=== PATIENT | female | born 1960 | race Caucasian/White ===

== ENCOUNTER 2024-04-07 10:57 | Outpatient (REF) | payer MEDICARE, OTHER, SELFPAY ==
[2024-04-07 13:13] LABS: Alanine Aminotransferase 17 U/L (0-31); Albumin Level 4.5 g/dL (3.5-5.0); Alkaline Phosphatase 80 U/L (39-117); Aspartate Amino Transferase 24 U/L (5-31); Bilirubin Direct 0.3 mg/dL (0.0-0.5); Bilirubin Total 0.8 mg/dL (0.0-1.0); Lipase 32 U/L (8-78); Total Protein 7.5 g/dL (6.5-8.0)
[2024-04-07 13:29] LABS: TSH reflex Free T4 1.37 uIU/mL (0.32-4.0)
[2024-04-07 13:36] LABS: Folate 13.1 ng/mL (> or = 4.0); Vitamin B12 469 pg/mL (200-900)
[2024-04-11 13:19] LABS: Vitamin D 25-OH, D2 9 ng/mL; Vitamin D 25-OH, D3 23 ng/mL; Vitamin D 25-OH, Total 32 ng/mL (30-100)
== END 2024-04-07 10:58 | disposition home or self-care (01) ==
LOC: HO.LAB 10:57
PROVIDERS: PCP Internal Medicine; Visit Provider Nurse Practitioner Family
DX: R10.31 Right lower quadrant pain (principal); R14.0 Abdominal distension (gaseous); K59.01 Slow transit constipation; E55.9 Vitamin D deficiency, unspecified; R74.01 Elevation of levels of liver transaminase levels; R19.7 Diarrhea, unspecified
CPT/HCPCS: 36415; 80076; 82306; 82607; 82746; 83690; 84443; 99202

== ENCOUNTER 2024-04-07 10:57 | Outpatient (AMB) | payer MEDICARE, OTHER, SELFPAY ==
--- NOTE | 2024-04-07 11:01 | A.OFFVIS_ITS ---
Vital Signs 04/07/24 11:15 Height 5 ft 8 in Weight 164 lb 0.383 oz BMI 24.9 BP 140/78 H Blood Pressure Location Rt brachial Position Sitting Pulse 60 Pulse Source Pulse Oximeter Pulse Oximetry (%) 96 Oxygen Delivery Method Room Air Intake Visit Reasons: EGD needed Intake Note: Shruthi presents in office today for a egd consult. CC; Pt reports that she is here today for egd consult with referral from her PCP based on LRQ pain. Pt reports that she has had this intermittent pain, consistently in the LRQ, for the past 6 mos. Pt reports that her sx present as an intense ache in that quadrant. Pt reports having intermittent constipation which seems to coincide with the pain in the LRQ. Pt denies any melena or other abnormalities of their bowel movements. Talent Acquisition Manager Required: No Allergies oxycodone Allergy (Intermediate, Verified 04/06/24 09:21) Unknown red dye Allergy (Intermediate, Verified 04/06/24 09:21) Unknown Sulfa (Sulfonamide Antibiotics) Allergy (Intermediate, Verified 04/06/24 09:21) Unknown lactase Allergy (Verified 04/06/24 09:21) Unknown HPI HPI EGD needed: Details: 63-year-old female with past medical history of hypothyroidism, osteoporosis, JOSE, hyperlipidemia, carotid stenosis, asthma is here today for initial consultation. Patient was sent to us by her PCP. Reports to have right lower quadrant pain that has been going on for over [address] scan done that did not show any acute processes. Also ultrasound was done and it was normal. Last colonoscopy was done over 5 years ago and we will ask for results. Patient reports that she has been eating fairly healthy. Patient eats mostly home cooked meals. Patient is avoiding fast food restaurants. Patient denies any melena, hematochezia, unintentional weight loss or ribbon like stools. Patient admits to have occasional constipation and reports that her pain in right lumbar region is worse when she is constipated. Patient also reports bloating postprandially as well as cramping. Patient reports that the pain does not radiate to any other area. Patient denies any dyspepsia, dysphagia or odynophagia. [facility] Medical History SVT (supraventricular tachycardia) HTN (hypertension) Osteoporosis JOSE (obstructive sleep apnea) Hypothyroidism (acquired) Hyperlipidemia GERD (gastroesophageal reflux disease) Carotid stenosis Asthma Surgical History H/O dilation and curettage Hx of section History of knee replacement Hx of thumb surgery Family History Mother Osteoporosis Father Dementia Parkinson disease Social History Household Members: Family Alcohol intake: never Patient Tobacco Use Status: Never used Tobacco Review of Systems Const Denies weight gain and Denies weight loss ENT Reports no additional complaints, Denies dysphagia and Denies odynophagia Card Reports no additional complaints Resp Reports no additional complaints GI Reports abdominal pain (RLQ), Denies belching, Denies melena, Reports bloating, Reports constipation, Denies dysphagia, Denies excessive flatus, Denies dyspepsia, Denies heartburn, Denies diarrhea, Denies loose stools, Denies nausea , Denies odynophagia and Denies vomiting Reports no additional complaints Musc Reports no additional complaints Neuro Reports no additional complaints Psych Reports no additional complaints Endo Reports no additional complaints Physical Exam Vital Signs: Last Vital Signs Pulse 60 04/07/24 11:15 BP 140/78 H 04/07/24 11:15 Pulse Ox 96 04/07/24 11:15 Oxygen Delivery Method Room Air 04/07/24 11:15 BMI result Body Mass Index 24.9 Const General: healthy appearing, no acute distress and well developed Nutritional Appearance: well nourished Orientation/consciousness: patient oriented x3 Resp Effort & Inspection: normal respiratory effort, able to speak in complete sentences, no tracheal deviation and symmetric chest movement Auscultation: clear to auscultation bilaterally Cardio Rate: regular rate GI Inspection: Yes normal to inspection and No distended Palpation (GI): Soft to palpation, not firm, nontender and No hepatosplenomegaly present Auscultation: normal bowel sounds General: Yes no CVA tenderness Back/Spine/Pelvis Back: no CVA tenderness Skin General skin exam: elasticity normal, turgor normal and dry skin Neuro General: patient oriented x3 Psych Appearance: grossly normal Mental Status: mental status grossly normal Results Reviewed Results Reviewed: CT OF ABDOMEN AND PELVIS 11/03/2023 Stomach, small bowel and large intestine: Mild circumferential thickening of an under distended pylorus, likely physiologic. No surrounding inflammatory changes. Enteric contrast noted in the descending colon. No evidence of bowel obstruction or acute inflammatory changes of the visualized bowel. IMPRESSION No acute intra-abdominal abnormality to explain patient's symptoms. No evidence of cholelithiasis, cholecystitis or bowel obstruction. Assessment & Plan Assessment & Plan (1) RLQ abdominal pain: Code(s): R10.31 - Right lower quadrant pain (2) Abdominal bloating: Code(s): R14.0 - Abdominal distension (gaseous) (3) Constipation: Code(s): K59.00 - Constipation, unspecified Qualifiers: Constipation type: slow transit constipation Qualified Code(s): K59.01 - Slow transit constipation Plan Will repeat blood work, her PCP did blood work some of the is from December. Will check lipase, vitamin B12, folate, vitamin-D level as well as liver panel. Will check thyroid. Discussed with patient low FODMAP diet. Avoiding food that can make her feel bloated. List of food recommended as well as list of food to avoid given to patient. Patient will try to take MiraLax [id number] to help her empty her bowels better. Please get records from [facility] from her last colonoscopy. Both CT scan and ultrasound discussed with patient. If patient will continue to have symptoms we might order enterography. Patient will return in 3 months, sooner on as needed basis. She is agreeable to this plan and verbalizes understanding of instructions. Thank you for allowing me to participate in her care Orders: Orders TSH reflex Free T4 Today K59.00 - Constipation, unspecified Lipase Today R10.9 - Unspecified abdominal pain Vitamin B12 and Folate Today R19.7 - Diarrhea, unspecified Vitamin D 25-OH (D2 and D3) Today E55.9 - Vitamin D deficiency, unspecified Liver Panel Today R74.01 - Elevation of levels of liver transaminase levels Medications: New polyethylene glycol 3350 (Miralax) 17 grams PO DAILY 510 grams 2RF Coding Level of Care Code New Pt Level 4 (01327) Diagnoses RLQ abdominal pain R10.31 Abdominal bloating R14.0 Slow transit constipation K59.01 Constipation type: slow transit constipation Time Spent (min) 45 Comment 30 minutes spent with patient and additional 15 minutes spent reviewing her records
[2024-04-07 11:15] VITALS: BP 140/78; PULSE 60; O2SAT 96; BMI 24.9
== END 2024-04-07 11:47 | disposition home or self-care (01) ==
LOC: HO.HGI 10:57
PROVIDERS: PCP Internal Medicine; Visit Provider Nurse Practitioner Family
DX: R10.31 Right lower quadrant pain (principal); R14.0 Abdominal distension (gaseous); K59.01 Slow transit constipation
CPT/HCPCS: 99204

== ENCOUNTER 2024-07-24 10:58 | Outpatient (AMB) | payer MEDICARE, OTHER, SELFPAY ==
[2024-07-24 11:02] VITALS: BP 140/78; PULSE 76; O2SAT 98; BMI 25.1
--- NOTE | 2024-07-24 11:02 | A.OFFVIS_ITS ---
Vital Signs 07/24/24 11:02 Height 5 ft 8 in Weight 164 lb 14.492 oz BMI 25.1 BP 140/78 H Blood Pressure Location Rt brachial Position Sitting Pulse 76 Pulse Source Pulse Oximeter Pulse Oximetry (%) 98 Oxygen Delivery Method Room Air Intake Visit Reasons: 3 month follow up Intake Note: Shruthi presents in office today for a scheduled 3 mos FUV. CC; Pt was rx'd miralax at their last visit. Pt also had lab work done as of 04/07/2024. Pt reports that they have been stable since their last visit. Pt reports that they have seen some slight improvements, however; they are still experiencing the intermittent RUQ pain. Pt has been making lifestyle adjustments which they feel have been helping. Pt also stopped taking the miralax as they did not find that the therapeutic response was what they were looking for. [facility] Required: No Allergies oxycodone Allergy (Intermediate, Verified 07/24/24 11:03) Unknown red dye Allergy (Intermediate, Verified 07/24/24 11:03) Unknown Sulfa (Sulfonamide Antibiotics) Allergy (Intermediate, Verified 07/24/24 11:03) Unknown lactase Allergy (Verified 07/24/24 11:03) Unknown HPI HPI 3 month follow up: Details: LAST VISIT RLQ abdominal pain Abdominal bloating Constipation Plan Will repeat blood work, her PCP did blood work some of the is from December. Will check lipase, vitamin B12, folate, vitamin-D level as well as liver panel. Will check thyroid. Discussed with patient low FODMAP diet. Avoiding food that can make her feel bloated. List of food recommended as well as list of food to avoid given to patient. Patient will try to take MiraLax [id number] to help her empty her bowels better. Please get records from [facility] from her last colonoscopy. Both CT scan and ultrasound discussed with patient. If patient will continue to have symptoms we might order enterography. Patient will return in 3 months, sooner on as needed basis. She is agreeable to this plan and verbalizes understanding of instructions. ? Thank you for allowing me to participate in her care Orders Orders TSH reflex Free T4 Today K59.00 Lipase Today R10.9 Vitamin B12 and Folate Today R19.7 Vitamin D 25-OH (D2 and D3) Today E55.9 Liver Panel Today R74.01 Medications New polyethylene glycol 3350 (Miralax) 17 grams PO DAILY 510 grams 2RF TODAY'S VISIT: Patient is here today for follow-up. Patient reports that she has been doing better since last visit. Patient change her diet. Looked up low FODMAP diet and try to follow it as much as she can. Patient reports that she is taking couple prunes a day and is able to move her bowels better. Patient is not taking MiraLax as it was not very effective. Patient is also drinking plenty fluids. Reports to be fairly active. Denies melena, hematochezia, unintentional weight loss or ribbon like stools. Patient denies any issues with anesthesia. Does report to have history of sleep apnea and is using CPAP every night. Patient is not on any anticoagulation medication. Denies any family history of CRC. Patient denies any cardiac or respiratory symptoms. [facility] Medical History SVT (supraventricular tachycardia) HTN (hypertension) Osteoporosis JOSE (obstructive sleep apnea) Hypothyroidism (acquired) Hyperlipidemia GERD (gastroesophageal reflux disease) Carotid stenosis Asthma Surgical History H/O dilation and curettage Hx of section History of knee replacement Hx of thumb surgery Family History Mother Osteoporosis Father Dementia Parkinson disease Social History Household Members: Family Alcohol intake: never Patient Tobacco Use Status: Never used Tobacco Review of Systems Const Denies weight gain and Denies weight loss ENT Reports no additional complaints, Denies dysphagia and Denies odynophagia Card Reports no additional complaints Resp Reports no additional complaints GI Denies abdominal pain, Denies belching, Denies melena, Denies bloating, Denies change in bowel habits, Denies dysphagia, Denies excessive flatus, Denies dyspepsia, Denies heartburn, Denies diarrhea, Denies loose stools, Denies nausea, Denies odynophagia and Denies vomiting Reports no additional complaints Musc Reports no additional complaints Neuro Reports no additional complaints Psych Reports no additional complaints Endo Reports no additional complaints Physical Exam Vital Signs: Last Vital Signs Pulse 76 07/24/24 11:02 BP 140/78 H 07/24/24 11:02 Pulse Ox 98 07/24/24 11:02 Oxygen Delivery Method Room Air 07/24/24 11:02 BMI result Body Mass Index 25.1 Const General: healthy appearing and no acute distress Nutritional Appearance: well nourished Orientation/consciousness: patient oriented x3 Resp Effort & Inspection: normal respiratory effort, able to speak in complete sentences, no tracheal deviation and symmetric chest movement Auscultation: clear to auscultation bilaterally Cardio Rate: regular rate GI Inspection: Yes normal to inspection and No distended Palpation (GI): Soft to palpation, not firm, nontender and No hepatosplenomegaly present Auscultation: normal bowel sounds General: Yes no CVA tenderness Back/Spine/Pelvis Back: no CVA tenderness Skin General skin exam: elasticity normal, turgor normal and dry skin Neuro General: patient oriented x3 Psych Appearance: grossly normal Mental Status: mental status grossly normal Assessment & Plan Assessment & Plan (1) RLQ abdominal pain: Code(s): R10.31 - Right lower quadrant pain (2) Abdominal bloating: Code(s): R14.0 - Abdominal distension (gaseous) (3) Constipation: Code(s): K59.00 - Constipation, unspecified Qualifiers: Constipation type: slow transit constipation Qualified Code(s): K59.01 - Slow transit constipation Plan Continue current diet. Low FODMAP diet discussed with patient. List of food recommended as well as list of food to avoid given to patient per her request. Please book patient for colonoscopy. Patient has a history of sleep apnea and is using CPAP every night. Denies any cardiac or respiratory symptoms. No issues with anesthesia in the past. Patient is not on any anticoagulation medication. What to expect before during and after procedure discussed with patient. Stressed the importance of good bowel prep and clear liquid diet day before procedure. I will see patient after the procedure, sooner on as needed basis. Patient is agreeable to this plan and verbalizes understanding of instructions. She was given the opportunity to ask questions and all questions answered. Thank you for allowing me to participate in her care Medications: New bisacodyl (Dulcolax (bisacodyl)) take 4 tabs at noon the day before your colonoscopy 20 mg (4 x 5 mg) PO ONCE 1 day 4 tabs 0RF Z12.11 - Encounter for screening for malignant neoplasm of colon polyethylene glycol 3350 (Miralax) As directed by gastroenterology department at [facility] 238 grams PO ONCE 238 grams 0RF Z12.11 - Encounter for screening for malignant neoplasm of colon Coding Level of Care Code Est Pt Level 3 (50688) Diagnoses RLQ abdominal pain R10.31 Abdominal bloating R14.0 Slow transit constipation K59.01 Constipation type: slow transit constipation Time Spent (min) 25 Comment 15 minutes spent with patient and additional 10 minutes spent reviewing her records
== END 2024-07-24 11:56 | disposition home or self-care (01) ==
PROVIDERS: PCP Internal Medicine; Visit Provider Nurse Practitioner Family
DX: R10.31 Right lower quadrant pain (principal); R14.0 Abdominal distension (gaseous); K59.01 Slow transit constipation
CPT/HCPCS: 99213

== ENCOUNTER → 2024-07-24 10:58 | Outpatient (BNVA) | payer MEDICARE, OTHER, SELFPAY | PROVIDERS: PCP Internal Medicine; Visit Provider Nurse Practitioner Family | DX: R10.11 Right upper quadrant pain (principal); R14.0 Abdominal distension (gaseous); K59.01 Slow transit constipation; R10.31 Right lower quadrant pain | CPT/HCPCS: 99212 ==

== ENCOUNTER 2024-11-29 08:38 | Day surgery (SDC) | payer MEDICARE, OTHER, SELFPAY ==
--- OUTSIDE RECORDS SUMMARY | 2024-10-12 11:28 | XMS_ITS | Continuity of Care Document ---
Author Organization [facility] Address [address] [place] [address]- Support Name Relationship Address Phone SHERIDAN, ELEANOR Personal Relationship Unknown Un available SHERIDAN, ELEANOR Personal Relationship Unknown Un available SHERIDAN, ELEANOR Personal Relationship Unknown Un available SHERIDAN, ELEANOR spouse Unknown Unavailable SHERIDAN, ELEANOR Personal Relationship Unknown Un available SHERIDAN, ELEANOR Personal Relationship Unknown Un available SHERIDAN, ELEANOR Personal Relationship Unknown Un available SHERIDAN, ELEANOR Personal Relationship Unknown Un available SHERIDAN, ELEANOR Personal Relationship Unknown Un available SHERIDAN, ELEANOR Personal Relationship Unknown Un available SHERIDAN, CHERYL child Unknown Unavailable SHERIDAN, ELEANOR Personal Relationship Unknown Un available SHERIDAN, ELEANOR Personal Relationship Unknown Un available SHERIDAN, ELEANOR Personal Relationship Unknown Un available SHERIDAN, ELEANOR Personal Relationship Unknown Un available SHERIDAN, ELEANOR Personal Relationship Unknown Un available SHERIDAN, ELEANOR Personal Relationship Unknown Un available SHERIDAN, ELEANOR Personal Relationship Unknown Un available SHERIDAN, ELEANOR Personal Relationship Unknown Un available SHERIDAN, ELEANOR Personal Relationship Unknown Un available SHERIDAN, ELEANOR Personal Relationship Unknown Un available SHERIDAN, ELEANOR Personal Relationship Unknown Un available SHERIDAN, ELEANOR Personal Relationship Unknown Un available SHERIDAN, ELEANOR Personal Relationship Unknown Un available SHERIDAN, ELEANOR Personal Relationship Unknown Un available SHERIDAN, ELEANOR Personal Relationship Unknown Un available SHERIDAN, ELEANOR Personal Relationship Unknown Un available SHERIDAN, ELEANOR Personal Relationship Unknown Un available SHERIDAN, ELEANOR Personal Relationship Unknown Un available SHERIDAN, ELEANOR Personal Relationship Unknown Un available SHERIDAN, ELEANOR Personal Relationship Unknown Un available SHERIDAN, ELEANOR Personal Relationship Unknown Un available SHERIDAN, ELEANOR Personal Relationship Unknown Un available SHERIDAN, ELEANOR Personal Relationship Unknown Un available Care Team Providers Care Metropolitan Editor Name Role Phone Grayson DIAS, Shelli Primary Care Physici an [facility]counter [facility] Date(s): 08/22/24 - 09/21/24 [facility] [address] [place] [address] Encounter Type: Triage Allergies, Adverse Reactions, Alerts Substance Criticality Severity Reaction Reaction Severity Status atorvastatin 1 Activ e sulfa drugs Active oxyCODONE 2 Active Red Dye 3 Throat Closes Active Lactose Active 1HIVES 2visual hallucinations 3*Throat closes* confirmed with RN 08/19/18 Immunizations Given and Recorded Vaccine Date Status Refusal Reason influenza virus vaccine, inactivated 07/23/24 Navjot rded influenza virus vaccine, inactivated 08/06/23 Navjot rded influenza virus vaccine, inactivated 09/03/22 Navjot rded influenza virus vaccine, inactivated 09/01/21 Navjot rded influenza virus vaccine, inactivated 09/26/17 Navjot rded influenza virus vaccine, inactivated 07/21/15 Navjot rded influenza virus vaccine, inactivated 07/23/10 Navjot rded SARS-CoV-2(COVID-19)mRNA-LNP vac([id number]) 07/23/24 Recorded SARS-CoV-2(COVID-19)mRNA-LNP vac([id number]) 08/06/23 Recorded SARS-CoV-2 mRNA (jjlmovg-rpqn-pejly) vax 02/18/22 Recorded SARS-CoV-2 mRNA (afifsfv-ttnu-rqecq) vax 09/02/21 Recorded zoster vaccine, inactivated 04/21/21 Recorded zoster vaccine, inactivated 11/15/20 Recorded SARS-CoV-2 (COVID-19) mRNA BNT-162b2 vac 02/02/21 Recorded SARS-CoV-2 (COVID-19) mRNA BNT-162b2 vac 01/12/21 Recorded Influenza Virus Vaccine (oldterm) 1 06/20/20 Recor ded Influenza Virus Vaccine (oldterm) 10/02/16 Recorde d diphtheria/tetanus/pertussis, acel(DTaP) 12/05/18 Recorded pneumococcal 23-valent vaccine 10/02/16 Recorded 1Result Comment: [facility] Problem List Condition Confirmation Course Effective Dates Status H ealth Status Informant Asthma Confirmed Active Carotid arterial disease Confirmed Active Chronic GERD Confirmed Active HLD (hyperlipidemia) Confirmed Active Hypothyroid Confirmed Active Obstructive sleep apnea Confirmed Active Nail fungus Confirmed Active Osteoporosis Confirmed Active Pelvic relaxation due to uterovaginal prolapse Confirmed Active Pre-hypertension Confirmed Active Supraventricular tachycardia Confirmed Active Social History Social History Type Response Smoking Status Never (less than 100 in lifetime) entered on: 03/26/23 Sex Sex Representation Female (finding) Patient Care team information Care Team Personnel Name: Bi Armenta RN Position: [facility] RN Member Role: Primary Care Nurse Name: Miriam Mcallister [place] Position: [facility] [place] Office Staff Member Role: Lifetime Consulting Physician Name: Grayson DIAS, Shelli Position: [facility] Physician - Primary Care Member Role: PCP Address: [address] [place] [id number]- Telecom: Name: Nilay DIAS, Jhonny Fry Position: [facility] BOOKSTORE MANAGER MD Member Role: Lifetime BOOKSTORE MANAGER Physician Address: [address] [place] [address] [facility] [place] [address]- Telecom: Care Team Related Persons Name: CHERYL SWARTZ Name: ELEANOR SWARTZ Insurance Providers Guarantor name: LUIS SWARTZ Health Plan Information #: 1 Payer: MEDICARE PART B OUTPT Member Number: NA Policy Number: NA Group Number: NA Health Plan Information #: 2 [facility] Member Number: NA Policy Number: NA Group Number: NA
--- OUTSIDE RECORDS SUMMARY | 2024-10-12 11:28 | XMS_ITS | Continuity of Care Document ---
Author Organization [facility] Address [address] [place] [address]- Support Name Relationship Address Phone SHERIDAN, ELEANOR [...] Unknown Un available Care Team Providers Care Desizing Pad Operator Name Role Phone Grayson DIAS, Shelli Primary Care Physici an Encounter [facility] Date(s): 08/16/24 - 09/15/24 [facility] [address] [place] [id number] Attending Physician: Orlin Medina Admitting Physician: Orlin Medina Referring Physician: Orlin Medina Encounter Type: Triage Allergies, Adverse Reactions, Alerts Substance Criticality Severity Reaction Reaction Severity Status atorvastatin 1 Activ e sulfa drugs Active Red Dye 2 Throat Closes Active Lactose Active oxyCODONE 3 Active 1HIVES 2*Throat closes* confirmed with RN 08/19/18 3visual hallucinations Immunizations Given and Recorded Vaccine Date Status Refusal Reason influenza virus vaccine, inactivated 07/23/24 Navjot rded influenza virus vaccine, inactivated 08/06/23 Navjot rded influenza virus vaccine, inactivated 09/03/22 Navjot rded influenza virus vaccine, inactivated 09/01/21 Navjot rded influenza virus vaccine, inactivated 09/26/17 Navjot rded influenza virus vaccine, inactivated 07/21/15 Navjot rded influenza virus vaccine, inactivated 07/23/10 Navjot rded SARS-CoV-2(COVID-19)mRNA-LNP vac([id number]) 07/23/24 Recorded SARS-CoV-2(COVID-19)mRNA-LNP vac([id number]) 08/06/23 Recorded SARS-CoV-2 mRNA (hxvkgmg-omfg-gjoli) vax 02/18/22 Recorded SARS-CoV-2 mRNA (jxafqhu-tnac-wqzgs) vax 09/02/21 Recorded zoster vaccine, inactivated 04/21/21 Recorded zoster vaccine, inactivated 11/15/20 Recorded SARS-CoV-2 (COVID-19) mRNA BNT-162b2 vac 02/02/21 Recorded SARS-CoV-2 (COVID-19) mRNA BNT-162b2 vac 01/12/21 Recorded Influenza Virus Vaccine (oldterm) 1 06/20/20 Recor ded Influenza Virus Vaccine (oldterm) 10/02/16 Recorde d diphtheria/tetanus/pertussis, acel(DTaP) 12/05/18 Recorded pneumococcal 23-valent vaccine 10/02/16 Recorded 1Result Comment: [facility] Problem List Condition Confirmation Course Effective Dates [...] Care team information Care Team Personnel Name: Geovany VALIENTE, Bi Moe Position: [facility] RN Member Role: Primary Care Nurse Name: Miriam Mcallister [place] Position: [facility] [place] Office Staff Member Role: Lifetime Consulting Physician Name: Grayson DIAS, Shelli Position: [facility] Physician - Primary Care Member Role: PCP Address: [address] [place] [id number] [place] Telecom: Name: Nilay DIAS, Jhonny Fry Position: [facility] MAKEUP ARTISTRY INSTRUCTOR Member Role: Lifetime MAKEUP ARTISTRY INSTRUCTOR Physician Address: [address] [place] [address] [facility] [place] [address]- Telecom: Care Team Related Persons Name: CHERYL SWARTZ Name: ELEANOR SWARTZ Insurance Providers Guarantor name: LUIS SWARTZ Health Plan Information #: 1 Payer: MEDICARE PART B OUTPT Member Number: NA Policy Number: NA Group Number: NA Health Plan Information #: 2 Payer: [facility] Member Number: NA Policy Number: NA Group Number: NA
--- OUTSIDE RECORDS SUMMARY | 2024-10-12 11:29 | XMS_ITS | Patient Health Record ---
Author Organization [facility] Address [address] [place] [id number] Care Team Providers Care Residential Property Consultant Name Role Phone LISS STAHL Primary Care Provider [phone] Joycelyn Garrison Unavailable [phone] ALLERGIES Allergen (clinical drug ingredient) Drug/Non Drug Allergy documented on EMR Reaction Allergy Type Onset Date Status Red Dye (uncoded) anaphylaxis Allergy Active Substance with sulfonamide structure and antibacterial mechanism of action (substance) Sulfa Antibiotics Hives Drug Allergy Active REASON FOR REFERRAL No Information MEDICATIONS Medication SIG (Take, Route, Frequency, Duration) Notes Start Date End Date Status Calcium Active Levothyroxine Sodium 112 MCG 1 tablet in the morning on an empty stomach Orally Once a day Active Vitamin D3 Active Flovent HFA as 'directed Activ e SOCIAL HISTORY Tobacco Use: Social History Observation Description Date Details (start date - stop date) Never Smoker NA - NA Sex Assigned At : Social History Observation Description Sex Assigned At Unknown Tobacco Use/Smoking Question Answer Notes Tobacco use: nonsmoker Section Notes: Lives in [place], [place] with her . Lives in [place], [place] with her . Lives in [place], [place] with her . PROBLEMS Problem Type ICD Code Onset Dates Problem Status W/U Status Risk SNOMED Code Notes Problem Age-related osteoporosis without current pathological fracture (M81.0) Active confirmed 76952551 Problem Seasonal allergies (J30.2) Active confirmed 145035962 Problem Mild intermittent asthma without complication (J45.20) Active confirmed 350422835 Problem Hypothyroidism, unspecified type (E03.9) Active confirmed 29845360 Problem Arthritis (M19.90) Active confirmed 4702557 Problem Intractable migraine with aura without status migrainosus (G43.119) Active confirmed 328553413 Problem Sleep apnea, unspecified type (G47.30) Active confirmed 41831412 VITAL SIGNS Heart Rate 82 /min 11/11/2023 Height-cm 171.45 cm 11/11/2023 Oximetry 97 % 11/11/2023 Blood pressure diastolic 80 mm Hg 11/11/2023 Weight-kg 73.39 kg 11/11/2023 Height 67.5 in 11/11/2023 Blood pressure systolic 132 mm Hg 11/11/2023 Weight 161.8 lbs 11/11/2023 BMI 24.96 kg/m2 11/11/2023 Encounters Encounter Location Date Provider Diagnosis [address] [id number] 11/24/2023 Joycelyn Garrison [address] [id number] 12/29/2023 Joycelyn Garrison [address] [id number] 02/01/[address] [id number] 04/19/2024 Joycelyn Garrison [address] [id number] 11/11/2023 Joycelyn Garrison Seasonal allergies J30.2 ; Mild intermittent asthma without complication J45.20 ; Arthritis M19.90 ; Intractable migraine with aura without status migrainosus G43.119 ; Age-related osteoporosis without current pathological fracture M81.0 ; Sleep apnea, unspecified type G47.30 ; Hypothyroidism, unspecified type E03.9 and History of Lyme disease Z86.[address] [id number] 12/29/2023 Joycelyn Garrison Hypothyroidism, unspecified type E03.9 ; Mixed hyperlipidemia E78.2 ; Essential (primary) hypertension I10 and Other fatigue R53.83 ASSESSMENTS Encounter Date Diagnosis Assessment Notes Treatment Notes Treatment Clinical Notes Section Notes 11/11/2023 Seasonal allergies (ICD-10 - J30.2) Avoid allergies Use antihistamine when necessary 11/11/2023 Mild intermittent asthma without complication (ICD-10 - J45.20) Continue occasional use of inhaler Avoid allergens Promptly address any infections Call if using inhalers more frequently Stable 12/29/2023 Mixed hyperlipidemia (ICD-10 - E78.2) 12/29/2023 Hypothyroidism, unspecified type (ICD-10 - E03.9) 12/29/2023 Essential (primary) hypertension (ICD-10 - I10) 11/11/2023 Arthritis (ICD-10 - M19.90) Arthritis treatment focuses on relieving symptoms and improving joint function. Medications use to treat arthritis depending on the type of arthritis. Commonly used arthritis medication include: NSAIDs (can reduce inflammation and relieve pain) stronger NSAIDS can cause stomach irritation and may increase risk of heart attack or stroke. NSAIDs are also available as creams or gels, which can be rubbed on joints; Counterirritants- some varieties of creams and ointments contain menthol or capsaicin, the ingredient that makes hot peppers spicy. Rubbing these preparations on the skin over aching joints may interfere with the transmission of pain signals from the joint itself; Steroids- can reduce inflammation and pain and slow joint damage. Can be given in pill or as an injection into the painful joint. Side effects may include thinning of bones, weight gain, and diabetes; Disease-modifying antirheumatic drugs- these drugs can slow the progression of rheumatoid arthritis and save the joint and other tissues from permanent damage- side effects can increase your risk of infections. Physical therapy cane he helpful for some types of arthritis. Exercise (such as swimming) can help keep joints flexible. Swimming and water aerobics may be good choices because the water reduces stress on weight-bearing joints. Weight loss may increase your mobility and limit future joint injury. Heat and cold may help relieve arthritis pain. Assistive devices ; using canes, shoe inserts, walkers, raised toilet seats, and other assistive devices can help protect joints and improve ability to perform daily tasks. 11/11/2023 Intractable migraine with aura without status migrainosus (ICD-10 - G43.119) Migraines are painful, throbbing headaches that often start on one side of the head. They may cause nausea and vomiting and make you sensitive to light, sound, or smell. Without treatment, migraines can last from 4 hours to a few days. Medicines can help prevent migraines or stop them after they have started. Your doctor can help you find which ones work best for you. Follow-up care is a dinh part of your treatment and safety. Be sure to make and go to all appointments, and call your doctor if you are having problems. It's also a good idea to know your test results and keep a list of the medicines you take. How can you care for yourself at home? Do not drive if you have taken a prescription pain medicine. Rest in a quiet, dark room until your headache is gone. Close your eyes, and try to relax or go to sleep. Don't watch TV or read. Put a cold, moist cloth or cold pack on the painful area for 10 to 20 minutes at a time. Put a thin cloth between the cold pack and your skin. Use a warm, moist towel or a heating pad set on low to relax tight shoulder and neck muscles. Have someone gently massage your neck and shoulders. Take your medicines exactly as prescribed. Call your doctor if you think you are having a problem with your medicine. You will get more details on the specific medicines your doctor prescribes. Don't take medicine for headache pain too often. Talk to your doctor if you are taking medicine more than 2 days a week to stop a headache. Taking too much pain medicine can lead to more headaches. These are called medicine-overuse headaches. States that she still gets aura's, however does not get the migrain portion after she went through menopause 12/29/2023 Other fatigue (ICD-10 - R53.83) 11/11/2023 Age-related osteoporosis without current pathological fracture (ICD-10 - M81.0) Continue meds as ordered Strength training exercises Fall prevention 11/11/2023 Sleep apnea, unspecified type (ICD-10 - G47.30) Compliant with CPAP/BiPap mask Continue plan of care 11/11/2023 Hypothyroidism, unspecified type (ICD-10 - E03.9) Continue with current medication regimen If she transfers care- we will obtain thyroid level 11/11/2023 History of Lyme disease (ICD-10 - Z86.19) No current concern at this time 11/11/2023 Other New patient welcomed to [facility] and complete intake was obtained. Patient handbook reviewed and signed receipt. Time spent with patient >70 minutes which included medication reconciliation, review of office policies and procedures, review of medical and family history, and discussion/exam with provider. PLAN OF TREATMENT Future Test Test Name Order Date THYROID PEROXIDASE AND THYROGLOBULIN ANT IBODIES (7260) 12/29/2023 THYROID PANEL WITH TSH (7444) 12/29/2023 CARDIO IQ(R) LIPID PANEL (93711) 024 ALBUMIN, RANDOM URINE W/CREATININE (6517 ) 12/29/2023 COMPREHENSIVE METABOLIC PANEL (93419) CARDIO IQ(R) LIPOPROTEIN (a) (94056) CBC (INCLUDES DIFF/PLT) (6399) URINALYSIS, COMPLETE W/REFLEX TO CULTURE (3020) 12/29/2023 CARDIO IQ(R) HS CRP (37003) 12/29/2023 CARDIO IQ(R) HEMOGLOBIN A1c (20684) 12/03 CARDIO IQ(R) APOLIPOPROTEIN A1 (10900) 0 12/29/2023 CARDIO IQ(R) APOLIPOPROTEIN B (28295) CARDIO IQ(R) HOMOCYSTEINE (10388) 2023 CARDIO IQ(R) INSULIN (17223) 12/29/2023 T3 UPTAKE (861) 12/29/2023 T3, TOTAL (859) 12/29/2023 T3, FREE (89543) 12/29/2023 CARDIO IQ(R) VITAMIN D, 25 HYDROXY (9173 5) 12/29/2023 Insurance Providers Payer Name Payer Address Payer Phone Subscriber Number Group Number Insured Name Patient Relationship to Insured Coverage Start Date Coverage End Date Medicare [address] [place] [address] [phone] [id number] LUIS SWARTZ Self - patient is the insured [facility] [address] [place], [place] [id number] LUIS SWARTZ Self - patient is the insured MEDICAL (GENERAL) HISTORY Medical History History ICD Code Allergies, Hay Fever Lactose Intolerant Arthritis Asthma Breast Lumps during nursing Chicken pox as a child Fracture - ankle 50 years ago Migraines Osteoporosis Sleep Apnea Low Thyroid Surgical History Surgery Date(Month/Year) C- Section 1989 D/C miscarriages [place] Teeth Removal 1979 Colonoscopy (2) - normal per patient 5+ years 2018 Bilateral Knee Replacement Right Hip Replacement 05/2023 Cardiac Ablasion 2017 Endoscopy - 10+ years ago - Swallowing I ssues - Red Dye Allergy DEXA Scan - Osteoporosis 2021 CT Scan - right abdominal pain 11/2023 Ultrasound - right abdominal pain 11/2023 Hospitalization History Reason Date(Month/Year) Lyme Disease 2018 C- Section 1990
--- OUTSIDE RECORDS SUMMARY | 2024-10-12 11:29 | XMS_ITS ---
Author Organization [facility], [facility] Address [address] [place] [phone] Care Team Providers Care Precision Jig Grinder Name Role Phone LISS STAHL Primary Care Provider [phone] Joycelyn Garrison [phone] ALLERGIES Allergen (clinical drug ingredient) Drug/Non Drug Allergy documented on EMR Reaction Allergy Type Onset Date Status Red Dye (uncoded) anaphylaxis Allergy Active Substance with sulfonamide structure and antibacterial mechanism of action (substance) Sulfa Antibiotics Hives Drug Allergy Active REASON FOR VISIT f/u n/pt labs SOCIAL HISTORY Tobacco Use: Social History Observation Description Date Details (start date - stop date) Never Smoker NA - NA Sex Assigned At : Social History Observation Description Sex Assigned At Unknown Tobacco Use/Smoking Question Answer Notes Tobacco use: nonsmoker Section Notes: Lives in [place], [place] with her . Encounters Encounter Location Date Provider Diagnosis [facility], [address] [id number] 02/01/2024 Joycelyn Garrison PLAN OF TREATMENT No Information Progress Notes * ELIZABETH SWARTZB:[birth year] (64 yo F)Acc No.[id number]:02/01/2024 Patient:??SHERIDANLUIS Provider:??Joycelyn Garrison DNP :1960?Age:63 Y?Sex:Fe male Date:02/01/2024 Phone: Address:[address] [place], [place] Pcp:LISS STAHL Subjective: * Chief Complaints: * ?1. F/u n/pt labs. * HPI: ?Patient Care Team:?Tool Room Gear Machine Operator:??Dr. Javier, [facility].??[place]audeville Actor:??Anisha Tinajero - [facility].??Recreational Aide:??Dr. Hart, [place], [place].??Parasitologist:??Dr. Vásquez, [facility] Amandeep.? Providers/Specialists: Dr. Jhonny Liz, [place], [place] ?PCP: Dr. Gill, [place], [place] ?Dentist: Dr. Cochran, [place], [place]. * Medical History:??Allergies, Hay Fever, Lactose Intolerant, Arthritis, Asthma, Breast Lumps during nursing, Chicken pox as a child, Fracture - ankle 50 years ago, Migraines, Osteoporosis, Sleep Apnea, Low Thyroid. * Herpetology Teacher History:??Menstrual hist ory:??Age of Menarche:??12,?Age of Menopause:??53.??Menopause??53.??Last pap smear date??10/2023 - normal per patient.??Last mammogram date??2021 - normal; per patient - scheduled for December 2023.?? * OB History:?? Histo ry:??Total pregnancies:??5,??Full-term pregnancies:??3,??AB Spontaneous:??2,??Total living children:??3.??C section(s)??1 - 1989.?? * Surgical History:??C- Sectio n 1989, D/C miscarriages , [place] Teeth Removal 1979, Colonoscopy (2) - normal per patient 5+ years 2017, Bilateral Knee Replacement , Right Hip Replacement 05/2023, Cardiac Ablasion 2017, Endoscopy - 10+ years ago - Swallowing Issues - Red Dye Allergy , DEXA Scan - Osteoporosis 2021, CT Scan - right abdominal pain 11/2023, Ultrasound - right abdominal pain 11/2023. * Hospitalization/Major Diagno stic Procedure:??C- Section 1989, Lyme Disease 2017. * Family History:??Father: dec eased 88 yrs, hypertension.??Mother: 88 yrs, hypertension, artery blockage - plaque.??Paternal Grandfather: 64 yrs, Stomach Cancer.??Paternal Grandmother: 90 yrs, Old Age.??Maternal Grandfather: 90 yrs, Old Age.??Maternal Grandmother: 90 yrs, Old Age.??Brother: alive, No health concxerns.??Brother #2: alive, No health concerns.??Brother #3: alive, Acute Pancreatitis.?? * Social History:?Tobacco Use:??Tobacco Use/Smoking??Tobacco use:??nonsmoker.?Drugs/Alcohol:??Do you smoke marijuana?: Denies. Do you drink alcohol?: Yes, occasionaly. 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 ?Lives in [place], [place] with her . * Allergies:??Red Dye: anaphyl axis - Allergy, Sulfa Antibiotics: Hives - Allergy. Objective: Assessment: Plan: * Treatment: * Preventive Medicine:?Last CPE: 2022 DEXA: Yes, 2021 - Osteoporosis Colonoscopy: Yes, 2018 normal per patient Endoscopy: Yes, 10+ years ago. Normal COVID Vac: Yes, all 5 boosters, Yes, for 2022 Flu Vac: Yes for 2022 PV : 2022 Shingles Vac: (2) Shingrex RSV: No. * Billing Information: * Visit Code:?? * Procedure Codes:?? * Sign off status: Pending * Provider:??Joycelyn Garrison DNP Date:??12/2023 History and Physical Notes * HPI (History of Present Illness) Category Sub-Category Detail Notes Category Not es Patient Care Team Tool Room Gear Machine Operator: Dr. Javier, [facility] Providers/Specialis ts: Dr. Jhonny Liz, [facility] MARGARET Almaguer [facility] Dentist: Rosina Deutsch [place] Vaudeville Actor: [facility] Recreational Aide: Pio Diaznasim martinez [place] Parasitologist: Dr. Vásquez, [facility]
--- OUTSIDE RECORDS SUMMARY | 2024-10-12 11:29 | XMS_ITS ---
Author Organization [facility], [facility] Address [address] [place], [place] [phone] Care Team Providers Care Demo Event Specialist Name Role Phone LISS STAHL Primary Care Provider Joycelyn Garrison [phone] REASON FOR VISIT cpe Encounters Encounter Location Date Provider Diagnosis [facility], [facility] [address], [place] [phone] 04/19/2024 Joycelyn Garrison PLAN OF TREATMENT No Information Progress Notes * EKATERINA SWARTZADOB:[birth year] (64 yo F)Acc No.[id number]:04/19/2024 Progress Note Patient:??LUIS SWARTZ Provider:??Joycelyn Garrison DNP :1960?Age:63 Y?Sex:Fe male Date:04/19/2024 Phone: Address:[address] [place], [place] Pcp:LISS STAHL Subjective: * Chief Complaints: * ?1. Cpe. * Medical History:?? Objective: Assessment: Plan: * Treatment: Care Plan: * Problems:?? * Billing Information: * Visit Code:?? * Procedure Codes:?? * Sign off status: Pending * Provider:??Joycelyn Garrison DNP Date:??
--- OUTSIDE RECORDS SUMMARY | 2024-10-12 11:29 | XMS_ITS ---
Author Organization [facility], [facility] Address [address] [place], [place] [phone] Care Team Providers Care Contracts Advisor Name Role Phone LISS STAHL Primary Care Provider [phone] Delroy Joycelyn Garrison Unavailable [phone] REASON FOR VISIT Lab- [facility] Encounters Encounter Location Date Provider Diagnosis [facility], [address] [id number] 12/29/2023 Joycelyn Garrison Hypothyroidism, unspecified type E03.9 ; Mixed hyperlipidemia E78.2 ; Essential (primary) hypertension I10 and Other fatigue R53.83 ASSESSMENTS Encounter Date Diagnosis Assessment Notes Treatment Notes Treatment Clinical Notes Section Notes 12/29/2023 Hypothyroidism, unspecified type (ICD-10 - E03.9) 12/29/2023 Mixed hyperlipidemia (ICD-10 - E78.2) 12/29/2023 Essential (primary) hypertension (ICD-10 - I10) 12/29/2023 Other fatigue (ICD-10 - R53.83) PLAN OF TREATMENT Future Test Test Name Order Date THYROID PEROXIDASE AND THYROGLOBULIN ANT IBODIES (7260) 12/29/2023 THYROID PANEL WITH TSH (7444) 12/29/2023 CARDIO IQ(R) LIPID PANEL (64405) 024 ALBUMIN, RANDOM URINE W/CREATININE (6517 ) 12/29/2023 COMPREHENSIVE METABOLIC PANEL (26304) CARDIO IQ(R) LIPOPROTEIN (a) (01478) CBC (INCLUDES DIFF/PLT) (6399) URINALYSIS, COMPLETE W/REFLEX TO CULTURE (3020) 12/29/2023 CARDIO IQ(R) HS CRP (92544) 12/29/2023 CARDIO IQ(R) HEMOGLOBIN A1c (77410) 12/03 CARDIO IQ(R) APOLIPOPROTEIN A1 (18346) 0 12/29/2023 CARDIO IQ(R) APOLIPOPROTEIN B (21332) CARDIO IQ(R) HOMOCYSTEINE (64916) 2023 CARDIO IQ(R) INSULIN (54115) 12/29/2023 T3 UPTAKE (861) 12/29/2023 T3, TOTAL (859) 12/29/2023 T3, FREE (88580) 12/29/2023 CARDIO IQ(R) VITAMIN D, 25 HYDROXY (9173 5) 12/29/2023 Progress Notes * EKATERINA SWARZTMERON:[birth year] (63 yo F)Acc No.[id number]:12/29/2023 Patient:??LUIS SWARTZ :1960?Age:63 Y?Sex:Fe male Phone: Address:[address] [place] [address], [place] [address] Subjective: * Chief Complaints: * ?Lab- [facility] * Medical History:?? * Surgical History:?? * Hospitalization/Major Diagno stic Procedure:?? * Medications:?? Objective: Assessment: * Assessment: 1.??Hypothyroidism, unspecif ied type - E03.9 (Primary)??2.??Mixed hyperlipidemia - E78.2??3.??Essential (primary) hypertension - I10??4.??Other fatigue - R53.83?? Plan: * Treatment: 2.??Mixed hyperlipidemia?LAB: CARDIO IQ(R) APOLIPOPROTEIN B (34977) (Ordered for 12/29/2023) ?LAB: CARDIO IQ(R) APOLIPOPROTEIN A1 (71902) (Ordered for 12/29/2023) ?LAB: CARDIO IQ(R) HEMOGLOBIN A1c (60474) (Ordered for 12/29/2023) ?LAB: CARDIO IQ(R) HOMOCYSTEINE (49175) (Ordered for 12/29/2023) ?LAB: CARDIO IQ(R) HS CRP (99429) (Ordered for 12/29/2023) ?LAB: CARDIO IQ(R) INSULIN (92571) (Ordered for 12/29/2023) ?LAB: CARDIO IQ(R) LIPID PANEL (89203) (Ordered for 12/29/2023) ?LAB: CARDIO IQ(R) LIPOPROTEIN (a) (38103) (Ordered for 12/29/2023) ?LAB: CARDIO IQ(R) VITAMIN D, 25 HYDROXY (59348) (Ordered for 12/29/2023) ?LAB: CBC (INCLUDES DIFF/PLT) (8948) (Ordered for 12/29/2023) ?LAB: COMPREHENSIVE METABOLIC PANEL (95397) (Ordered for 12/29/2023) ?LAB: ALBUMIN, RANDOM URINE W/CREATININE (3762) (Ordered for 12/29/2023) ?LAB: THYROID PANEL WITH TSH (3546) (Ordered for 12/29/2023) ?LAB: THYROID PEROXIDASE AND THYROGLOBULIN ANTIBODIES (3306) (Ordered for 12/29/2023) ?LAB: URINALYSIS, COMPLETE W/REFLEX TO CULTURE (0348) (Ordered for 12/29/2023) 3.??Essential (primary) hype rtension?LAB: CARDIO IQ(R) APOLIPOPROTEIN B (24838) (Ordered for 12/29/2023) ?LAB: CARDIO IQ(R) APOLIPOPROTEIN A1 (37751) (Ordered for 12/29/2023) ?LAB: CARDIO IQ(R) HEMOGLOBIN A1c (46839) (Ordered for 12/29/2023) ?LAB: CARDIO IQ(R) HOMOCYSTEINE (40216) (Ordered for 12/29/2023) ?LAB: CARDIO IQ(R) HS CRP (05227) (Ordered for 12/29/2023) ?LAB: CARDIO IQ(R) INSULIN (40860) (Ordered for 12/29/2023) ?LAB: CARDIO IQ(R) LIPID PANEL (45264) (Ordered for 12/29/2023) ?LAB: CARDIO IQ(R) LIPOPROTEIN (a) (82419) (Ordered for 12/29/2023) ?LAB: CARDIO IQ(R) VITAMIN D, 25 HYDROXY (21455) (Ordered for 12/29/2023) ?LAB: CBC (INCLUDES DIFF/PLT) (1399) (Ordered for 12/29/2023) ?LAB: COMPREHENSIVE METABOLIC PANEL (40942) (Ordered for 12/29/2023) ?LAB: ALBUMIN, RANDOM URINE W/CREATININE (7942) (Ordered for 12/29/2023) ?LAB: THYROID PANEL WITH TSH (4466) (Ordered for 12/29/2023) ?LAB: THYROID PEROXIDASE AND THYROGLOBULIN ANTIBODIES (6306) (Ordered for 12/29/2023) ?LAB: URINALYSIS, COMPLETE W/REFLEX TO CULTURE (1139) (Ordered for 12/29/2023) 4.??Other fatigue?LAB: CARDIO IQ(R) APOLIPOPROTEIN B (60147) (Ordered for 12/29/2023) ?LAB: CARDIO IQ(R) APOLIPOPROTEIN A1 (86750) (Ordered for 12/29/2023) ?LAB: CARDIO IQ(R) HEMOGLOBIN A1c (61226) (Ordered for 12/29/2023) ?LAB: CARDIO IQ(R) HOMOCYSTEINE (59885) (Ordered for 12/29/2023) ?LAB: CARDIO IQ(R) HS CRP (78943) (Ordered for 12/29/2023) ?LAB: CARDIO IQ(R) INSULIN (82560) (Ordered for 12/29/2023) ?LAB: CARDIO IQ(R) LIPID PANEL (56123) (Ordered for 12/29/2023) ?LAB: CARDIO IQ(R) LIPOPROTEIN (a) (35738) (Ordered for 12/29/2023) ?LAB: CARDIO IQ(R) VITAMIN D, 25 HYDROXY (42439) (Ordered for 12/29/2023) ?LAB: CBC (INCLUDES DIFF/PLT) (4499) (Ordered for 12/29/2023) ?LAB: COMPREHENSIVE METABOLIC PANEL (10427) (Ordered for 12/29/2023) ?LAB: ALBUMIN, RANDOM URINE W/CREATININE (8346) (Ordered for 12/29/2023) ?LAB: THYROID PANEL WITH TSH (5360) (Ordered for 12/29/2023) ?LAB: THYROID PEROXIDASE AND THYROGLOBULIN ANTIBODIES (5228) (Ordered for 12/29/2023) ?LAB: URINALYSIS, COMPLETE W/REFLEX TO CULTURE (4125) (Ordered for 12/29/2023) * Procedure Codes:?? * true * Date:??
[2024-11-27 14:58] VITALS: BMI 25.1
--- NOTE | 2024-11-28 08:58 | P.CONAN_ITS ---
Documented by User: Laurence Oseguera NP 11/28/24 09:06 HPI - Anesthesia Eval Consult details Narrative: 64yo F for Colonoscopy Follows [facility] cardiology for History of SVT, status post ablation (of slow- fast AVNRT and of right atrial tachycardia)?08/2018 Follows [facility] pulmo for asthma, central sleep apnea PMFSH Past Medical History Medical History (Updated 11/29/24 @ 09:00 by Damari Rey RN) SVT (supraventricular tachycardia) HTN (hypertension) Osteoporosis JOSE (obstructive sleep apnea) Hypothyroidism (acquired) Hyperlipidemia GERD (gastroesophageal reflux disease) Carotid stenosis Asthma Family History Family History Mother Osteoporosis Father Dementia Parkinson disease Surgical History Surgical History (Updated 11/29/24 @ 08:53 by Damari Rey RN) History of total hip replacement H/O dilation and curettage Hx of section History of knee replacement Hx of thumb surgery Social History Social History Household Members: Family Alcohol intake: never Patient Tobacco Use Status: Never used Tobacco Use of substances other than those prescribed or required for medical reasons: No Are you DNR?: No Advance Directives: No Advance Directives Information Provided: Yes Nutrition Risks: No Nutritional Risk Patient : No Meds Allergies Allergy/AdvReac Type Severity Reaction Status Date / Time lactase Allergy Intermediate Diarrhea Verified 11/29/24 08:53 oxycodone Allergy Intermediate Hallucinati Verified 11/29/24 08:53 ons red dye Allergy Intermediate Anaphylaxis Verified 11/29/24 08:53 Sulfa (Sulfonamide Allergy Intermediate Anaphylaxis Verified 11/29/24 08:53 Antibiotics) Home Medications ?Medication ?Instructions ?Recorded ?Confirmed ?Last Taken ?Type levothyroxine 25 mcg tablet 12.5 mcg PO DAILY 04/06/24 11/29/24 History levothyroxine 50 mcg tablet mcg PO 04/06/24 Unknown History levocetirizine 5 mg tablet (Xyzal) 5 mg PO DAILY 07/24/24 Unknown History rosuvastatin 20 mg tablet 20 mg PO DAILY 07/24/24 Unknown History Exam Height,Weight and Vital Signs: Height 5 ft 8 in Weight 74.797 kg Narrative Narrative: ECGECG 12-Lead ? 07:03:11 Ventricular Rate: 53 BPM Atrial Rate: 53 BPM P-R Interval: 204 ms QRS Duration: 92 ms Q-T Interval: 420 ms QTC Calculation(Bazett): 394 ms P [place]: 60 degrees R [place]: 27 degrees T [place]: 39 degrees Sinus bradycardia with sinus arrhythmia Possible Inferior infarct (cited on or before 25-AUG-2022) Abnormal ECG When compared with ECG of 25-AUG-2022 14:00, No significant change was found Confirmed by ABDIAZIZ PRATT DO ([id number]) on 03/30/2023 5:18:28 PM [place]: ABDIAZIZ PRATT DO ? Signed By: Abdiaziz Pratt DO ? ECG 12-Lead ? 07:03:11 Please click on pdf link to open report ? Signed By: Abdiaziz Pratt DO VL StudiesVL Carotid Duplex Scan Bilat ? 12:53:37 Summary: Right Side: 1-49% stenosis in the Internal Carotid Artery. Antegrade flow in the Vertebral Artery. Multiphasic flow is seen in the Subclavian Artery. Left Side: 1-49% stenosis in the Internal Carotid Artery. Antegrade flow in the Vertebral Artery. Multiphasic flow is seen in the Subclavian Artery. No prior exam Assessment and Plan Assessment Anesthesia Assessment: Chart Reviewed Documented by User: Reina Rashid MD 11/29/24 09:05 [facility] Past Medical History Medical History (Updated 11/29/24 @ 09:00 by Damari Rey RN) SVT (supraventricular tachycardia) HTN (hypertension) Osteoporosis JOSE (obstructive sleep apnea) Hypothyroidism (acquired) Hyperlipidemia GERD (gastroesophageal reflux disease) Carotid stenosis Asthma Family History Family History Mother Osteoporosis Father Dementia Parkinson disease Family history of problems with anesthesia: No Surgical History Surgical History (Updated 11/29/24 @ 08:53 by Damari Rey RN) History of total hip replacement H/O dilation and curettage Hx of section History of knee replacement Hx of thumb surgery History of Problems with Anesthesia: No Social History Social History Household Members: Family Alcohol intake: never Patient Tobacco Use Status: Never used Tobacco Use of substances other than those prescribed or required for medical reasons: No Are you DNR?: No Advance Directives: No Advance Directives Information Provided: Yes Nutrition Risks: No Nutritional Risk Patient : No Meds Allergies Allergy/AdvReac Type Severity Reaction Status Date / Time lactase Allergy Intermediate Diarrhea Verified 11/29/24 08:53 oxycodone Allergy Intermediate Hallucinati Verified 11/29/24 08:53 ons red dye Allergy Intermediate Anaphylaxis Verified 11/29/24 08:53 Sulfa (Sulfonamide Allergy Intermediate Anaphylaxis Verified 11/29/24 08:53 Antibiotics) Home Medications ?Medication ?Instructions ?Recorded ?Confirmed ?Last Taken ?Type levothyroxine 25 mcg tablet 12.5 mcg PO DAILY 04/06/24 11/29/24 History levothyroxine 50 mcg tablet mcg PO 04/06/24 Unknown History levocetirizine 5 mg tablet (Xyzal) 5 mg PO DAILY 07/24/24 Unknown History rosuvastatin 20 mg tablet 20 mg PO DAILY 07/24/24 Unknown History Exam Airway Mallampati Class: II TM Dist: >3cm Neck ROM: Full Heart: rrr Lungs: cta Assessment and Plan Assessment Anesthesia Assessment: Anesthesia Plan Discussed Final Anesthetic Review Family History of Problems with Anesthesia: No History of Problems with Anesthesia: No NPO: Yes ASA Class: II Final Preanesthetic Review: No Changes in Pt Med Stat, Meds/Allgs Chart Reviewed and Consent Obtained/Reviewed Patient Risk: Low Procedure Risk: Low Anesthetic Plan Anesthetic Plan: MAC: Disposition: Standard PACU
[2024-11-29 08:57] VITALS: BMI 25.0
--- NOTE | 2024-11-29 09:01 | MHC.SHP ---
Pre-Procedural Eval Section A - 24 Hr Update-Section A only Date of Service: 11/29/24 Section B - Complete if H&P > 30 days Chief Complaint: Encounter for screening for malignant neoplasm of Relevant Family History (Specify if Yes): No Relevant Social History: None Present Medications: see Short Stay Collaborative assessment Medical History: Significant History ( SVT (supraventricular tachycardia) HTN (hypertension) Osteoporosis JOSE (obstructive sleep apnea) Hypothyroidism (acquired) Hyperlipidemia GERD (gastroesophageal reflux disease) Carotid stenosis Asthma) History of Previous Operations: Relevant previous surgery/procedure and date(s) ( H/O dilation and curettage Hx of section History of knee replacement Hx of thumb surgery) Allergies: Allergies Allergy/AdvReac Type Severity Reaction Status Date / Time lactase Allergy Intermediate Diarrhea Verified 11/29/24 08:53 oxycodone Allergy Intermediate Hallucinati Verified 11/29/24 08:53 ons red dye Allergy Intermediate Anaphylaxis Verified 11/29/24 08:53 Sulfa (Sulfonamide Allergy Intermediate Anaphylaxis Verified 11/29/24 08:53 Antibiotics) Review of Systems Sugical H&P ROS: Negative: Constitution, Cardiovascular, Respiratory, Neurological, Psychiatric, Hem-Onc, Allergic/Immunologic, Gastrointestinal, Genitourinary, Musculoskeletal, Integumentary, Endocrine and Eyes/Ears/Nose/Throat Exam Surgical H&P Exam: Normal: HEENT, Normal: Heart, Normal: Lungs, Normal: Extremities, Normal: Abdomen, Normal: Skin and Normal: Neurological Plan Diagnosis/Plan: Unchanged I have reviewed the history and physical and performed a pertinent physical examination on my patient. No changes have occurred unless specified. Time Spent With Patient Time: Total time managing care of this patient today ____ minutes.
[2024-11-29 09:09] VITALS: BP 134/63; PULSE 72; RESP 16; TEMP 37.3; O2SAT 99
--- OUTSIDE RECORDS SUMMARY | 2024-11-29 09:15 | XMS_ITS | Patient Health Record ---
Author Organization [facility] [employer] [facility] Address [address] [place] [id number] Care Team Providers Care Barometers Calibrator Name Role Phone LISS STAHL Primary Care Provider Joycelyn Garrison Unavailable [phone] ALLERGIES Allergen (clinical drug ingredient) Drug/Non Drug [...] Tobacco use: nonsmoker Section Notes: Lives in [place], [place] with her . Lives [place] with her . [place] with her . PROBLEMS Problem Type ICD Code Onset Dates Problem Status W/U Status Risk SNOMED Code Notes Problem Age-related osteoporosis without current pathological fracture (M81.0) Active confirmed 54724300 Problem Seasonal allergies (J30.2) Active confirmed 900295789 Problem Mild intermittent asthma without complication (J45.20) Active confirmed 676995627 Problem Hypothyroidism, unspecified type (E03.9) Active confirmed 77170869 Problem Arthritis (M19.90) Active confirmed 3417960 Problem Intractable migraine with aura without status migrainosus (G43.119) Active confirmed 438175949 Problem Sleep apnea, unspecified type (G47.30) Active confirmed 21517519 Encounters Encounter Location Date Provider Diagnosis [address] [id number] 12/29/2023 [address]arrison [address] [place] [id number] 02/01/2024 [address]elyn Garrison [address] [place] [id number] 04/19/2024 [address]arrison [address] [place] [phone] 12/29/2023 Joycelyn Garrison Hypothyroidism, unspecified type E03.9 ; Mixed hyperlipidemia E78.2 ; Essential (primary) hypertension I10 and Other fatigue R53.83 ASSESSMENTS Encounter Date Diagnosis Assessment Notes Treatment Notes Treatment Clinical Notes Section Notes 12/29/2023 Mixed hyperlipidemia (ICD-10 - E78.2) 12/29/2023 Hypothyroidism, unspecified type (ICD-10 - E03.9) 12/29/2023 Essential (primary) hypertension (ICD-10 - I10) 12/29/2023 Other fatigue (ICD-10 - R53.83) PLAN OF TREATMENT Future Test Test Name Order Date THYROID PEROXIDASE AND THYROGLOBULIN ANT IBODIES (7260) 12/29/2023 THYROID PANEL WITH TSH (7444) 12/29/2023 CARDIO IQ(R) LIPID PANEL (91661) 024 ALBUMIN, RANDOM URINE W/CREATININE (6517 ) 12/29/2023 COMPREHENSIVE METABOLIC PANEL (37360) CARDIO IQ(R) LIPOPROTEIN (a) (93824) CBC (INCLUDES DIFF/PLT) (6399) URINALYSIS, COMPLETE W/REFLEX TO CULTURE (3020) 12/29/2023 CARDIO IQ(R) HS CRP (19053) 12/29/2023 CARDIO IQ(R) HEMOGLOBIN A1c (66136) 12/03 CARDIO IQ(R) APOLIPOPROTEIN A1 (39253) 0 12/29/2023 CARDIO IQ(R) APOLIPOPROTEIN B (58519) CARDIO IQ(R) HOMOCYSTEINE (86541) 2023 CARDIO IQ(R) INSULIN (62054) 12/29/2023 T3 UPTAKE (861) 12/29/2023 T3, TOTAL (859) 12/29/2023 T3, FREE (33666) 12/29/2023 CARDIO IQ(R) VITAMIN D, 25 HYDROXY (9173 5) 12/29/2023 Insurance Providers Payer Name Payer Address Payer Phone Subscriber Number Group Number Insured Name Patient Relationship to Insured Coverage Start Date Coverage End Date Medicare [address] [place] [id number] [phone] [id number] LUIS SWARTZ Self - patient is the insured [facility] [address] [place], [place] [phone] [id number] LUIS SWARTZ Self - patient is the insured MEDICAL (GENERAL) HISTORY Medical History History ICD Code Allergies, Hay Fever Lactose Intolerant Arthritis Asthma Breast Lumps during nursing Chicken pox as a child Fracture - ankle 50 years ago Migraines Osteoporosis Sleep Apnea Low Thyroid Surgical History Surgery Date(Month/Year) C- Section 1989 D/C miscarriages [place] Teeth Removal 1979 Colonoscopy (2) - normal per patient 5+ years 2018 Bilateral Knee Replacement Right Hip Replacement 05/2023 Cardiac Ablasion 2018 Endoscopy - 10+ years ago - Swallowing I ssues - Red Dye Allergy DEXA Scan - Osteoporosis 2021 CT Scan - right abdominal pain 11/2023 Ultrasound - right abdominal pain 11/2023 Hospitalization History Reason Date(Month/Year) Lyme Disease 2018 C- Section 1989
--- OUTSIDE RECORDS SUMMARY | 2024-11-29 09:15 | XMS_ITS ---
Author Organization [facility], [facility] Address [address] [place] [phone] Care Team Providers Care Software Support Analyst Name Role Phone LISS STAHL Primary Care Provider [phone] Joycelyn Garrison [phone] ALLERGIES Allergen (clinical drug ingredient) Drug/Non Drug [...] Tobacco use: nonsmoker Section Notes: Lives in [place], [place] with her . Encounters Encounter Location Date Provider Diagnosis [facility], [address] [id number] 02/01/2024 Joycelyn Garrison PLAN OF TREATMENT No Information Progress Notes * ELIZABETH SWARTZB:[birth year] (64 yo F)Acc No.[id number]:02/01/2024 Patient:??SHERIDANLUIS Martinez Provider:??Joycelyn Garrison DNP :1960?Age:63 Y?Sex:Fe male Date:02/01/2024 Phone: Address:[address] [place], [place] Pcp:LISS STAHL Subjective: * Chief Complaints: * ?1. F/u n/pt labs. * HPI: ?Patient Care Team:?Stage Setting Painter Apprentice:??Dr. Javier, [facility].??Supervisor Scrap Preparation:??Anisha Tinajero - [facility].??City Magistrate:??Dr. Hart, [place], [place].??Director Graphics:??Dr. Vásquez, [facility] Amandeep.? Providers/Specialists: Dr. Jhonny Liz, [place], [place] ?PCP: Dr. Gill, [place], [place] ?Dentist: Dr. Cochran, [place], [place]. * Medical History:??Allergies, Hay Fever, Lactose Intolerant, Arthritis, Asthma, Breast Lumps during nursing, Chicken pox as a child, Fracture - ankle 50 years ago, Migraines, Osteoporosis, Sleep Apnea, Low Thyroid. * Municipal Bond Trader History:??Menstrual hist ory:??Age of Menarche:??12,?Age of Menopause:??53.??Menopause??53.??Last pap smear date??10/2023 - normal per patient.??Last mammogram date??2021 - normal; per patient - scheduled for December 2023.?? * OB History:?? Histo ry:??Total pregnancies:??5,??Full-term pregnancies:??3,??AB Spontaneous:??2,??Total living children:??3.??C section(s)??1 - 1989.?? * Surgical History:??C- Sectio n 1989, D/C miscarriages , [place] Teeth Removal 1979, Colonoscopy (2) - normal [...] Yes, occasionaly. 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 ?Lives in [place], [place] with her . * Allergies:??Red Dye: [...] Notes Category Not es Patient Care Team Stage Setting Painter Apprentice: Dr. Javier, [facility] Providers/Specialis ts: Dr. Jhonny Liz, [facility] MARGARET Almaguer PCP: Dr. Gill, [facility] MARGARET Thacker Dentist: Rosina Deutsch [place] Supervisor Scrap Preparation: [facility] City Magistrate: Pio Diaznasim mart[place] Director Graphics: Dr. Vásquez, [facility]
--- OUTSIDE RECORDS SUMMARY | 2024-11-29 09:15 | XMS_ITS ---
Author Organization [facility], [facility] Address [address], [place] [phone] Care Team Providers Care Senior Caregiver Name Role Phone LISS STAHL Primary Care Provider [phone] Joycelyn Garrison [phone] REASON FOR VISIT cpe Encounters Encounter Location Date Provider Diagnosis [facility], [facility] [address], [place] [phone] 04/19/2024 Joycelyn Garrison PLAN OF TREATMENT No Information Progress Notes * EKATERINA SWARTZADOB:[birth year] (64 yo F)Acc No.[id number]:04/19/2024 Progress Note Patient:??LUIS SWARTZ Provider:??Jyocelyn Garrison DNP :1960?Age:63 Y?Sex:Fe male Date:04/19/2024 Phone: Address:[address] [place], [place] Pcp:LISS STAHL Subjective: * Chief Complaints: * ?1. Cpe. * Medical History:?? Objective: Assessment: Plan: * Treatment: Care Plan: * Problems:?? * Billing Information: * Visit Code:?? * Procedure Codes:?? * Sign off status: Pending * Provider:??Joycelyn Garrison DNP Date:??
--- OUTSIDE RECORDS SUMMARY | 2024-11-29 09:15 | XMS_ITS ---
Author Organization [facility], [facility] Address [address], [place] [phone] Care Team Providers Care Survey Researcher Name Role Phone LISS STAHL Primary Care Provider [phone] Delroy Joycelyn Garrison Unavailable [phone] REASON FOR VISIT Lab- [facility] Encounters Encounter Location Date Provider Diagnosis [facility], [address] [id number] 12/29/2023 Joycelyn Garrison Hypothyroidism, unspecified type E03.9 [...] TSH (7444) 12/29/2023 CARDIO IQ(R) LIPID PANEL (27801) 024 ALBUMIN, RANDOM URINE W/CREATININE (6517 ) 12/29/2023 COMPREHENSIVE METABOLIC PANEL (74738) CARDIO IQ(R) LIPOPROTEIN (a) (24559) CBC (INCLUDES DIFF/PLT) (6399) URINALYSIS, COMPLETE W/REFLEX TO CULTURE (3020) 12/29/2023 CARDIO IQ(R) HS CRP (62611) 12/29/2023 CARDIO IQ(R) HEMOGLOBIN A1c (54520) 12/03 CARDIO IQ(R) APOLIPOPROTEIN A1 (45265) 0 12/29/2023 CARDIO IQ(R) APOLIPOPROTEIN B (21778) CARDIO IQ(R) HOMOCYSTEINE (73252) 2023 CARDIO IQ(R) INSULIN (89461) 12/29/2023 T3 UPTAKE (861) 12/29/2023 T3, TOTAL (859) 12/29/2023 T3, FREE (33552) 12/29/2023 CARDIO IQ(R) VITAMIN D, 25 HYDROXY (9173 5) 12/29/2023 Progress Notes * EKATERINA SWARTZMERON:[birth year] (63 yo F)Acc No.[id number]:12/29/2023 Patient:??LUIS SWARTZ :1960?Age:63 Y?Sex:Fe male Phone: Address:[address] [place] [address], [place] [address] Subjective: * Chief Complaints: * ?Lab- [facility] * Medical History:?? * Surgical History:?? * Hospitalization/Major Diagno stic Procedure:?? * Medications:?? Objective: Assessment: * Assessment: 1.??Hypothyroidism, unspecif ied type - E03.9 (Primary)??2.??Mixed hyperlipidemia - E78.2??3.??Essential (primary) hypertension - I10??4.??Other fatigue - R53.83?? Plan: * Treatment: 2.??Mixed hyperlipidemia?LAB: CARDIO IQ(R) APOLIPOPROTEIN B (47478) (Ordered for 12/29/2023) ?LAB: CARDIO IQ(R) APOLIPOPROTEIN A1 (86008) (Ordered for 12/29/2023) ?LAB: CARDIO IQ(R) HEMOGLOBIN A1c (57870) (Ordered for 12/29/2023) ?LAB: CARDIO IQ(R) HOMOCYSTEINE (82487) (Ordered for 12/29/2023) ?LAB: CARDIO IQ(R) HS CRP (38296) (Ordered for 12/29/2023) ?LAB: CARDIO IQ(R) INSULIN (35686) (Ordered for 12/29/2023) ?LAB: CARDIO IQ(R) LIPID PANEL (79021) (Ordered for 12/29/2023) ?LAB: CARDIO IQ(R) LIPOPROTEIN (a) (64605) (Ordered for 12/29/2023) ?LAB: CARDIO IQ(R) VITAMIN D, 25 HYDROXY (31217) (Ordered for 12/29/2023) ?LAB: CBC (INCLUDES DIFF/PLT) (1052) (Ordered for 12/29/2023) ?LAB: COMPREHENSIVE METABOLIC PANEL (08628) (Ordered for 12/29/2023) ?LAB: ALBUMIN, RANDOM URINE W/CREATININE (9501) (Ordered for 12/29/2023) ?LAB: THYROID PANEL WITH TSH (3310) (Ordered for 12/29/2023) ?LAB: THYROID PEROXIDASE AND THYROGLOBULIN ANTIBODIES (0621) (Ordered for 12/29/2023) ?LAB: URINALYSIS, COMPLETE W/REFLEX TO CULTURE (2190) (Ordered for 12/29/2023) 3.??Essential (primary) hype rtension?LAB: CARDIO IQ(R) APOLIPOPROTEIN B (40232) (Ordered for 12/29/2023) ?LAB: CARDIO IQ(R) APOLIPOPROTEIN A1 (12674) (Ordered for 12/29/2023) ?LAB: CARDIO IQ(R) HEMOGLOBIN A1c (83674) (Ordered for 12/29/2023) ?LAB: CARDIO IQ(R) HOMOCYSTEINE (95049) (Ordered for 12/29/2023) ?LAB: CARDIO IQ(R) HS CRP (62748) (Ordered for 12/29/2023) ?LAB: CARDIO IQ(R) INSULIN (75088) (Ordered for 12/29/2023) ?LAB: CARDIO IQ(R) LIPID PANEL (26568) (Ordered for 12/29/2023) ?LAB: CARDIO IQ(R) LIPOPROTEIN (a) (03911) (Ordered for 12/29/2023) ?LAB: CARDIO IQ(R) VITAMIN D, 25 HYDROXY (86591) (Ordered for 12/29/2023) ?LAB: CBC (INCLUDES DIFF/PLT) (6299) (Ordered for 12/29/2023) ?LAB: COMPREHENSIVE METABOLIC PANEL (97909) (Ordered for 12/29/2023) ?LAB: ALBUMIN, RANDOM URINE W/CREATININE (9160) (Ordered for 12/29/2023) ?LAB: THYROID PANEL WITH TSH (7039) (Ordered for 12/29/2023) ?LAB: THYROID PEROXIDASE AND THYROGLOBULIN ANTIBODIES (6649) (Ordered for 12/29/2023) ?LAB: URINALYSIS, COMPLETE W/REFLEX TO CULTURE (6438) (Ordered for 12/29/2023) 4.??Other fatigue?LAB: CARDIO IQ(R) APOLIPOPROTEIN B (60928) (Ordered for 12/29/2023) ?LAB: CARDIO IQ(R) APOLIPOPROTEIN A1 (73768) (Ordered for 12/29/2023) ?LAB: CARDIO IQ(R) HEMOGLOBIN A1c (15418) (Ordered for 12/29/2023) ?LAB: CARDIO IQ(R) HOMOCYSTEINE (85687) (Ordered for 12/29/2023) ?LAB: CARDIO IQ(R) HS CRP (15361) (Ordered for 12/29/2023) ?LAB: CARDIO IQ(R) INSULIN (04389) (Ordered for 12/29/2023) ?LAB: CARDIO IQ(R) LIPID PANEL (03958) (Ordered for 12/29/2023) ?LAB: CARDIO IQ(R) LIPOPROTEIN (a) (40205) (Ordered for 12/29/2023) ?LAB: CARDIO IQ(R) VITAMIN D, 25 HYDROXY (58998) (Ordered for 12/29/2023) ?LAB: CBC (INCLUDES DIFF/PLT) (5199) (Ordered for 12/29/2023) ?LAB: COMPREHENSIVE METABOLIC PANEL (58109) (Ordered for 12/29/2023) ?LAB: ALBUMIN, RANDOM URINE W/CREATININE (2662) (Ordered for 12/29/2023) ?LAB: THYROID PANEL WITH TSH (8984) (Ordered for 12/29/2023) ?LAB: THYROID PEROXIDASE AND THYROGLOBULIN ANTIBODIES (2797) (Ordered for 12/29/2023) ?LAB: URINALYSIS, COMPLETE W/REFLEX TO CULTURE (6061) (Ordered for 12/29/2023) * Procedure Codes:?? * true * Date:??
[2024-11-29] MEDS: Lactated Ringers 1,000 ML 100 ML IVCONT (09:21)
--- NOTE | 2024-11-29 10:43 | HO.OPN-COLON ---
Colonoscopy Operative Note Operative Note Date of Service: 11/29/24 Narrative: Operative Information Procedure Description: Colonoscopy Indication: constipation Anesthesia: MAC COLONOSCOPY Instrument: Olympus variable stiffness pediatric scope 190L Colonoscopy Monitoring: Vital signs and clinical assessment, continuous EKG monitoring, Pulse oximetry, Carbon Dioxide monitoring and blood pressure monitoring were done throughout the procedure. Colon withdrawal time was 8 minutes. Procedure: The patient was placed in the left lateral decubitis position and pre-procedure medications were administered. After a digital rectal examination of the ano-rectum, the video colonoscope was inserted into the rectum and advanced through the colon to the cecum/TI. The colonoscope was slowly withdrawn in a retrograde panoramic fashion and the colon mucosa was carefully examined including a retroflexed view of the rectum. Findings and interventions are described below. Procedure Difficulty: v difficult, switched to adult scope and used colowrap Findings: Terminal Ileum-normal Cecum:normal Ascending Colon: normal Transverse Colon -normal Descending Colon: x 2 sessile appearing polyps 6-9 mm removed with cold snare, one was not retrieved Sigmoid Colon: normal Rectum: Retroflexion with small internal hemorrhoids seen, grade I Anorectum - normal Intervention: cold snare Colon preparation: [place] Bowel Preparation Scale Right colon; 3 Transverse colon: 3 Left colon; 3 (0 = Unprepared colon segment with mucosa not seen due to solid stool that cannot be cleared. 1 = Portion of mucosa of the colon segment seen, but other areas of the colon segment not well seen due to staining, residual stool and/or opaque liquid. 2 = Minor amount of residual staining, small fragments of stool and/or opaque liquid, but mucosa of colon segment seen well. 3 = Entire mucosa of colon segment seen well with no residual staining, small fragments of stool or opaque liquid) Impression and Post Procedure Diagnosis: redundant colon- could explain her constipation, she also has small umbilical hernia colon polyps internal hemorrhoids Plan: High fiber diet leaflet Avoid straining at stool, epsom salts and sitz bath, anusol supps or cream Repeat Colonoscopy in 5-6 years or earlier if clinically indicated Above findings were reviewed with the patient and relevant handouts were provided if indicated.
[2024-11-29 10:45] VITALS: BP 107/59; PULSE 65; RESP 16; TEMP 36.1; O2SAT 97
[2024-11-29 11:04] VITALS: BP 119/74; PULSE 61; RESP 18; O2SAT 97
[2024-11-29 11:20] VITALS: BP 118/72; PULSE 61; RESP 18; TEMP 36.4; O2SAT 97
== END 2024-11-29 11:57 | disposition home or self-care (01) ==
PROVIDERS: PCP Internal Medicine; Visit Provider Internal Medicine Gastroenterology
PROC: 0DJD8ZZ Inspection of Lower Intestinal Tract, Via Natural or Artificial Opening Endoscopic (ICD-10-PCS; CPT 45378; principal; 2024-11-29 10:20)
DX: Z12.11 Encounter for screening for malignant neoplasm of colon (principal); K63.5 Polyp of colon; K59.00 Constipation, unspecified; K64.0 First degree hemorrhoids; Q43.8 Other specified congenital malformations of intestine; K42.9 Umbilical hernia without obstruction or gangrene; K21.9 Gastro-esophageal reflux disease without esophagitis; I10 Essential (primary) hypertension; I65.29 Occlusion and stenosis of unspecified carotid artery; I47.10 Supraventricular tachycardia, unspecified; E78.5 Hyperlipidemia, unspecified; E03.9 Hypothyroidism, unspecified; J45.909 Unspecified asthma, uncomplicated; G47.33 Obstructive sleep apnea (adult) (pediatric); M81.0 Age-related osteoporosis without current pathological fracture; Z79.899 Other long term (current) drug therapy; Z88.2 Allergy status to sulfonamides; Z88.5 Allergy status to narcotic agent; Z98.890 Other specified postprocedural states
CPT/HCPCS: 45385; 88305; J2003; J2704

== ENCOUNTER → 2024-11-29 08:38 | Outpatient (BNV) | payer MEDICARE, OTHER, SELFPAY | PROVIDERS: PCP Internal Medicine; Visit Provider Internal Medicine Gastroenterology | DX: Z12.11 Encounter for screening for malignant neoplasm of colon (principal); K59.00 Constipation, unspecified; K63.5 Polyp of colon; K64.0 First degree hemorrhoids | CPT/HCPCS: 45385 ==

== ENCOUNTER 2024-12-14 14:03 | Outpatient (AMB) | payer MEDICARE, OTHER, SELFPAY ==
--- OUTSIDE RECORDS SUMMARY | 2024-12-14 14:08 | XMS_ITS ---
Author Organization [facility], [facility] Address [address], [place] [id number] Care Team Providers Care Fire Control Technician B Name Role Phone LISS STAHL Primary Care Provider [phone] Joycelyn Garrison Unavailable [phone] REASON FOR VISIT Lab- [facility] Encounters Encounter Location Date Provider Diagnosis [facility], [address] [id number] 12/29/2023 Joycelyn Garrison Hypothyroidism, unspecified type E03.9 [...] TSH (7444) 12/29/2023 CARDIO IQ(R) LIPID PANEL (50675) 024 ALBUMIN, RANDOM URINE W/CREATININE (6517 ) 12/29/2023 COMPREHENSIVE METABOLIC PANEL (34715) CARDIO IQ(R) LIPOPROTEIN (a) (16811) CBC (INCLUDES DIFF/PLT) (6399) URINALYSIS, COMPLETE W/REFLEX TO CULTURE (3020) 12/29/2023 CARDIO IQ(R) HS CRP (45213) 12/29/2023 CARDIO IQ(R) HEMOGLOBIN A1c (05130) 12/03 CARDIO IQ(R) APOLIPOPROTEIN A1 (35242) 0 12/29/2023 CARDIO IQ(R) APOLIPOPROTEIN B (30246) CARDIO IQ(R) HOMOCYSTEINE (21566) 2023 CARDIO IQ(R) INSULIN (73270) 12/29/2023 T3 UPTAKE (861) 12/29/2023 T3, TOTAL (859) 12/29/2023 T3, FREE (36227) 12/29/2023 CARDIO IQ(R) VITAMIN D, 25 HYDROXY (9173 5) 12/29/2023 Progress Notes * EKATERINA SWARTZMERON:[birth year] (63 yo F)Acc No.[id number]:12/29/2023 Patient:??LUIS SWARTZ :1960?Age:63 Y?Sex:Fe male Phone: Address:[address] [place] [address], [place] [address] Subjective: * Chief Complaints: * ?[facility]- [facility] * Medical History:?? * Surgical History:?? * Hospitalization/Major Diagno stic Procedure:?? * Medications:?? Objective: Assessment: * Assessment: 1.??Hypothyroidism, unspecif ied type - E03.9 (Primary)??2.??Mixed hyperlipidemia - E78.2??3.??Essential (primary) hypertension - I10??4.??Other fatigue - R53.83?? Plan: * Treatment: 2.??Mixed hyperlipidemia?LAB: CARDIO IQ(R) APOLIPOPROTEIN B (54188) (Ordered for 12/29/2023) ?LAB: CARDIO IQ(R) APOLIPOPROTEIN A1 (73345) (Ordered for 12/29/2023) ?LAB: CARDIO IQ(R) HEMOGLOBIN A1c (82419) (Ordered for 12/29/2023) ?LAB: CARDIO IQ(R) HOMOCYSTEINE (55171) (Ordered for 12/29/2023) ?LAB: CARDIO IQ(R) HS CRP (59220) (Ordered for 12/29/2023) ?LAB: CARDIO IQ(R) INSULIN (96055) (Ordered for 12/29/2023) ?LAB: CARDIO IQ(R) LIPID PANEL (76503) (Ordered for 12/29/2023) ?LAB: CARDIO IQ(R) LIPOPROTEIN (a) (79522) (Ordered for 12/29/2023) ?LAB: CARDIO IQ(R) VITAMIN D, 25 HYDROXY (46670) (Ordered for 12/29/2023) ?LAB: CBC (INCLUDES DIFF/PLT) (6550) (Ordered for 12/29/2023) ?LAB: COMPREHENSIVE METABOLIC PANEL (57050) (Ordered for 12/29/2023) ?LAB: ALBUMIN, RANDOM URINE W/CREATININE (6986) (Ordered for 12/29/2023) ?LAB: THYROID PANEL WITH TSH (7850) (Ordered for 12/29/2023) ?LAB: THYROID PEROXIDASE AND THYROGLOBULIN ANTIBODIES (1332) (Ordered for 12/29/2023) ?LAB: URINALYSIS, COMPLETE W/REFLEX TO CULTURE (6748) (Ordered for 12/29/2023) 3.??Essential (primary) hype rtension?LAB: CARDIO IQ(R) APOLIPOPROTEIN B (90275) (Ordered for 12/29/2023) ?LAB: CARDIO IQ(R) APOLIPOPROTEIN A1 (30278) (Ordered for 12/29/2023) ?LAB: CARDIO IQ(R) HEMOGLOBIN A1c (50158) (Ordered for 12/29/2023) ?LAB: CARDIO IQ(R) HOMOCYSTEINE (05050) (Ordered for 12/29/2023) ?LAB: CARDIO IQ(R) HS CRP (60907) (Ordered for 12/29/2023) ?LAB: CARDIO IQ(R) INSULIN (44584) (Ordered for 12/29/2023) ?LAB: CARDIO IQ(R) LIPID PANEL (88209) (Ordered for 12/29/2023) ?LAB: CARDIO IQ(R) LIPOPROTEIN (a) (39710) (Ordered for 12/29/2023) ?LAB: CARDIO IQ(R) VITAMIN D, 25 HYDROXY (68599) (Ordered for 12/29/2023) ?LAB: CBC (INCLUDES DIFF/PLT) (0399) (Ordered for 12/29/2023) ?LAB: COMPREHENSIVE METABOLIC PANEL (29706) (Ordered for 12/29/2023) ?LAB: ALBUMIN, RANDOM URINE W/CREATININE (4926) (Ordered for 12/29/2023) ?LAB: THYROID PANEL WITH TSH (2554) (Ordered for 12/29/2023) ?LAB: THYROID PEROXIDASE AND THYROGLOBULIN ANTIBODIES (8298) (Ordered for 12/29/2023) ?LAB: URINALYSIS, COMPLETE W/REFLEX TO CULTURE (5048) (Ordered for 12/29/2023) 4.??Other fatigue?LAB: CARDIO IQ(R) APOLIPOPROTEIN B (93801) (Ordered for 12/29/2023) ?LAB: CARDIO IQ(R) APOLIPOPROTEIN A1 (28323) (Ordered for 12/29/2023) ?LAB: CARDIO IQ(R) HEMOGLOBIN A1c (93019) (Ordered for 12/29/2023) ?LAB: CARDIO IQ(R) HOMOCYSTEINE (33317) (Ordered for 12/29/2023) ?LAB: CARDIO IQ(R) HS CRP (39824) (Ordered for 12/29/2023) ?LAB: CARDIO IQ(R) INSULIN (45617) (Ordered for 12/29/2023) ?LAB: CARDIO IQ(R) LIPID PANEL (09657) (Ordered for 12/29/2023) ?LAB: CARDIO IQ(R) LIPOPROTEIN (a) (90549) (Ordered for 12/29/2023) ?LAB: CARDIO IQ(R) VITAMIN D, 25 HYDROXY (49760) (Ordered for 12/29/2023) ?LAB: CBC (INCLUDES DIFF/PLT) (6499) (Ordered for 12/29/2023) ?LAB: COMPREHENSIVE METABOLIC PANEL (43222) (Ordered for 12/29/2023) ?LAB: ALBUMIN, RANDOM URINE W/CREATININE (3625) (Ordered for 12/29/2023) ?LAB: THYROID PANEL WITH TSH (6181) (Ordered for 12/29/2023) ?LAB: THYROID PEROXIDASE AND THYROGLOBULIN ANTIBODIES (9716) (Ordered for 12/29/2023) ?LAB: URINALYSIS, COMPLETE W/REFLEX TO CULTURE (9811) (Ordered for 12/29/2023) * Procedure Codes:?? * true * Date:??
--- OUTSIDE RECORDS SUMMARY | 2024-12-14 14:08 | XMS_ITS ---
Author Organization [facility], [facility] Address [address] [place] [id number] Care Team Providers Care Pinion Polisher Name Role Phone LISS STAHL Primary Care Provider [phone] Joycelyn Garrison [phone] ALLERGIES Allergen (clinical drug ingredient) Drug/Non Drug [...] Tobacco use: nonsmoker Section Notes: Lives in [place], [place] with her . Encounters Encounter Location Date Provider Diagnosis [facility], [address] [phone] 02/01/2024 Joycelyn Garrison PLAN OF TREATMENT No Information Progress Notes * ELIZABETH SWARTZB:[birth year] (64 yo F)Acc No.[id number]:02/01/2024 Patient:??SHERIDANLUIS Smiley Provider:??Joycelyn Garriosn DNP :1960?Age:63 Y?Sex:Fe male Date:02/01/2024 Phone: Address:[address] [place], [place] Pcp:LISS STAHL Subjective: * Chief Complaints: * ?1. F/u n/pt labs. * HPI: ?Patient Care Team:?Website Developer:??Dr. Javier, [facility].??Wire Frame Lampshade Maker:??Anisha Tinajero - [facility].??Hop Worker:??Dr. Hart, [place], [place].??Nurse Practitioner:??Dr. Vsáquez, [facility] Amandeep.? Providers/Specialists: Dr. Jhonny Liz, [place], [place] ?PCP: Dr. Gill, [place], [place] ?Dentist: Dr. Cochran, [place], [place]. * Medical History:??Allergies, Hay Fever, Lactose Intolerant, Arthritis, Asthma, Breast Lumps during nursing, Chicken pox as a child, Fracture - ankle 50 years ago, Migraines, Osteoporosis, Sleep Apnea, Low Thyroid. 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 * OB History:?? Histo ry:??Total pregnancies:??5,??Full-term pregnancies:??3,??AB Spontaneous:??2,??Total living children:??3.??C section(s)??1 - 1989.?? * Surgical History:??C- Sectio n 1989, D/C miscarriages , [place] Teeth Removal 1979, Colonoscopy (2) - normal [...] Yes, occasionaly. 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 ?Lives in [place], [place] with her . * Allergies:??Red Dye: [...] Notes Category Not es Patient Care Team Website Developer: Dr. Javier, [facility] Providers/Specialis ts: Dr. Jhonny Liz, [facility] MARGARET Almaguer [facility] Dentist: Rosina Deutsch [place] Wire Frame Lampshade Maker: [facility] Hop Worker: Pio Diaznasim smiley [place] Nurse Practitioner: Dr. Vásquez, [facility]
--- OUTSIDE RECORDS SUMMARY | 2024-12-14 14:08 | XMS_ITS | Patient Health Record ---
Author Organization [facility] Address [address] [place] [id number] Care Team Providers Care Field Tech Name Role Phone LISS STAHL Primary Care Provider [phone] Joycelyn Garrison Unavailable [phone] ALLERGIES Allergen (clinical drug ingredient) Drug/Non Drug [...] Tobacco use: nonsmoker Section Notes: Lives in [place], [place] with her . Lives in [place], [place] with her . Lives in [place], [place] with her . PROBLEMS Problem Type ICD Code Onset Dates Problem Status W/U Status Risk SNOMED Code Notes Problem Age-related osteoporosis without current pathological fracture (M81.0) Active confirmed 47674594 Problem Seasonal allergies (J30.2) Active confirmed 175515254 Problem Mild intermittent asthma without complication (J45.20) Active confirmed 928449145 Problem Hypothyroidism, unspecified type (E03.9) Active confirmed 85949072 Problem Arthritis (M19.90) Active confirmed 4441531 Problem Intractable migraine with aura without status migrainosus (G43.119) Active confirmed 567689427 Problem Sleep apnea, unspecified type (G47.30) Active confirmed 70881200 Encounters Encounter Location Date Provider Diagnosis [address] [id number] 12/29/2023 [address]elyn [address]arrison [address] [place] [phone] 02/01/2024 [address]elyn [address]arrison [address] [place] [phone] 04/19/2024 [address]arrison [address] [place] [phone] 12/29/2023 Joycelyn Garrison Hypothyroidism, unspecified type E03.9 [...] TSH (7444) 12/29/2023 CARDIO IQ(R) LIPID PANEL (81035) 024 ALBUMIN, RANDOM URINE W/CREATININE (6517 ) 12/29/2023 COMPREHENSIVE METABOLIC PANEL (24066) CARDIO IQ(R) LIPOPROTEIN (a) (06074) CBC (INCLUDES DIFF/PLT) (6399) URINALYSIS, COMPLETE W/REFLEX TO CULTURE (3020) 12/29/2023 CARDIO IQ(R) HS CRP (89131) 12/29/2023 CARDIO IQ(R) HEMOGLOBIN A1c (15575) 12/03 CARDIO IQ(R) APOLIPOPROTEIN A1 (76123) 0 12/29/2023 CARDIO IQ(R) APOLIPOPROTEIN B (44962) CARDIO IQ(R) HOMOCYSTEINE (75157) 2023 CARDIO IQ(R) INSULIN (26603) 12/29/2023 T3 UPTAKE (861) 12/29/2023 T3, TOTAL (859) 12/29/2023 T3, FREE (24622) 12/29/2023 CARDIO IQ(R) VITAMIN D, 25 HYDROXY (9173 5) 12/29/2023 Insurance Providers Payer Name Payer Address Payer Phone Subscriber Number Group Number Insured Name Patient Relationship to Insured Coverage Start Date Coverage End Date Medicare [address] [place] [id number] [phone] [id number] LUIS SWARTZ Self - patient is the insured [facility] [address] [place], [place] [id number] LUIS SWARTZ Self - patient is the insured MEDICAL (GENERAL) HISTORY Medical History History ICD Code Allergies, Hay Fever Lactose Intolerant Arthritis Asthma Breast Lumps during nursing Chicken pox as a child Fracture - ankle 50 years ago Migraines Osteoporosis Sleep Apnea Low Thyroid Surgical History Surgery Date(Month/Year) C- Section 1989 D/C miscarriages [place] Teeth Removal 1979 Colonoscopy (2) - normal [...]
--- OUTSIDE RECORDS SUMMARY | 2024-12-14 14:09 | XMS_ITS ---
Author Organization [facility], [facility] Address [address] [place], [place] [phone] Care Team Providers Care Turbine Room Attendant Name Role Phone LISS STAHL Primary Care Provider Joycelyn Garrison [phone] REASON FOR VISIT cpe Encounters Encounter Location Date Provider Diagnosis [facility], [facility] [address] [place], [place] [phone] 04/19/2024 Joycelyn Garrison PLAN OF TREATMENT No Information Progress Notes * EKATERINA SWARTZADOB:[birth year] (64 yo F)Acc No.[id number]:04/19/2024 Progress Note Patient:??LUIS SWARTZ Provider:??Joycelyn Garrison DNP :1960?Age:63 Y?Sex:Fe male Date:04/19/2024 Phone: Address:[address] [place], [place] Pcp:LISS STAHL Subjective: * Chief Complaints: * ?1. Cpe. * Medical History:?? Objective: Assessment: Plan: * Treatment: Care Plan: * Problems:?? * Billing Information: * Visit Code:?? * Procedure Codes:?? * Sign off status: Pending * Provider:??Joycelyn Garrison DNP Date:??
--- NOTE | 2024-12-14 14:10 | A.OFFVIS_ITS ---
Vital Signs 12/14/24 14:19 Height 5 ft 8 in Weight 171 lb 2 oz BMI 26.0 BP 156/75 H Blood Pressure Location Lt brachial Position Sitting Pulse 74 Intake Visit Reasons: Umbilical hernia Intake Note: Patient is seen in office for evaluation and treatment of an umbilical hernia. Pt c/o: does not feel a lump or bump, this was found when her colonoscopy was done, pain in the RLQ, denies n/v/d/c ref Dr Joseph Farmworker Fur Required: No Accompanied by: Self / Same As Patient Allergies lactase Allergy (Intermediate, Verified 12/14/24 14:17) Diarrhea oxycodone Allergy (Intermediate, Verified 12/14/24 14:17) Hallucinations red dye Allergy (Intermediate, Verified 12/14/24 14:17) Anaphylaxis Sulfa (Sulfonamide Antibiotics) Allergy (Intermediate, Verified 12/14/24 14:17) Anaphylaxis Medication List - Last Reconciled 12/14/24 by Feroz Macias MD fluticasone furoate 50 mcg/actuation (Arnuity Ellipta) inhalation levocetirizine (Xyzal) 5 mg PO DAILY levothyroxine 12.5 mcg PO DAILY levothyroxine mcg PO rosuvastatin 20 mg PO DAILY HPI Comments Details: 64-year-old female patient presenting for evaluation of an umbilical hernia. She denies having any umbilical symptoms were and denies a prior history of surgery in this location. She recently underwent colonoscopy at which time the umbilical hernia was identified. She denies a history of pain, nausea or vomiting but does report constipation. She was noted to have a floppy colon during the procedure. She was unaware of the hernia prior to the colonoscopy. [facility] Medical History SVT (supraventricular tachycardia) HTN (hypertension) Osteoporosis JOSE (obstructive sleep apnea) Hypothyroidism (acquired) Hyperlipidemia GERD (gastroesophageal reflux disease) Carotid stenosis Asthma Surgical History History of total hip replacement H/O dilation and curettage Hx of section History of knee replacement Hx of thumb surgery Family History Mother Osteoporosis Father Dementia Parkinson disease Social History Household Members: Family Alcohol intake: never Patient Tobacco Use Status: Never used Tobacco Review of Systems Const All systems reviewed & are unremarkable except as noted in HPI and below Denies chills, Denies fever(s), Denies headache(s), Denies poor appetite and Denies weakness ENT Denies headache(s) Card Denies chest pain, Denies irregular heart rhythm, Denies palpitations and Denies dyspnea Resp Denies cough, Denies excessive phlegm production and Denies dyspnea GI Denies abdominal pain, Denies bloating, Denies change in bowel habits, Denies constipation, Denies heartburn, Denies diarrhea, Denies nausea and Denies vomiting Denies urinary frequency Musc Denies back pain, Denies muscle weakness and Denies numbness Skin/Breast Denies changing lesions and Denies unusual bruising Neuro Denies headache(s), Denies numbness, Denies paresthesias and Denies weakness Psych Denies anxiety and Denies depression Endo Denies palpitations Sameer/Lymph Denies lymphadenopathy Physical Exam Vital Signs: Last Vital Signs Pulse 74 12/14/24 14:19 BP 156/75 H 12/14/24 14:19 BMI result Body Mass Index 26.0 Const General: cooperative and no acute distress Nutritional Appearance: well nourished Orientation/consciousness: patient oriented x3 Limitations: no limitations HEENT Head: Yes normocephalic and Yes atraumatic Ears: hearing grossly normal bilaterally Resp Effort & Inspection: normal respiratory effort, no audible wheezes, no cough and no respiratory distress Cardio Jugular venous distension: no JVD GI Other: Tiny umbilical hernia containing preperitoneal fat which increases with Valsalva maneuvers. The actual defect measures approximately 0.5 cm in diameter. There is no skin change or tenderness to palpation. Inspection: Yes normal to inspection Skin Other: Warm, dry, no rash Neuro General: patient oriented x3 Extrem General: Yes no clubbing, cyanosis or edema Assessment & Plan Assessment & Plan (1) Umbilical hernia: Code(s): K42.9 - Umbilical hernia without obstruction or gangrene Category: Medical Qualifiers: Obstruction and gangrene presence: without obstruction or gangrene Qualified Code(s): K42.9 - Umbilical hernia without obstruction or gangrene Plan 64-year-old female patient presenting with a tiny umbilical hernia noted on recent colonoscopy. On examination she has a small defect containing preperitoneal fat which is easily reducible. There is no tenderness to palpation. I discussed the repair of this umbilical hernia versus observation including the relative risks and benefits. As she is relatively asymptomatic I do think she can safely watch this hernia as she may have had it for many years without knowing. She is welcome to return should develop any symptoms including increasing size of the hernia or increased pain. She expressed understanding and agrees with the plan. She will follow-up as needed. Coding Level of Care Code New Pt Level 4 (88235) Diagnoses Umbilical hernia without obstruction and without gangrene K42.9 Obstruction and gangrene presence: without obstruction or gangrene
[2024-12-14 14:19] VITALS: BP 156/75; PULSE 74; BMI 26.0
== END 2024-12-14 14:27 | disposition home or self-care (01) ==
PROVIDERS: PCP Internal Medicine; Referring Provider Internal Medicine Gastroenterology; Visit Provider Surgery
DX: K42.9 Umbilical hernia without obstruction or gangrene (principal)
CPT/HCPCS: 99204

== ENCOUNTER → 2024-12-14 14:03 | Outpatient (BNVA) | payer MEDICARE, OTHER, SELFPAY | PROVIDERS: PCP Internal Medicine; Referring Provider Internal Medicine Gastroenterology; Visit Provider Surgery | DX: K42.9 Umbilical hernia without obstruction or gangrene (principal) | CPT/HCPCS: 99202 ==

== ENCOUNTER 2024-12-15 11:49 | Outpatient (AMB) | payer MEDICARE, OTHER, SELFPAY ==
--- NOTE | 2024-12-15 11:55 | MHC.OFFVIS ---
Vital Signs 12/15/24 11:56 Height 5 ft 8 in Weight 166 lb 10.711 oz BMI 25.3 BP 146/76 H Blood Pressure Location Rt brachial Position Sitting Pulse 64 Pulse Source Pulse Oximeter Pulse Oximetry (%) 100 Oxygen Delivery Method Room Air Intake Visit Reasons: s/p colon Intake Note: ESTABLISHED PATIENT for s/p colo w/ questions + constipation mgmt. Chief Complaint; C/O newer onset of RUQ pain. Pt also reports still experiencing chronic constipation. Pt denies any additional concerns. Registered Dental Assistant Required: No Accompanied by: Self / Same As Patient Allergies lactase Allergy (Intermediate, Verified 12/15/24 11:55) Diarrhea oxycodone Allergy (Intermediate, Verified 12/15/24 11:55) Hallucinations red dye Allergy (Intermediate, Verified 12/15/24 11:55) Anaphylaxis Sulfa (Sulfonamide Antibiotics) Allergy (Intermediate, Verified 12/15/24 11:55) Anaphylaxis HPI HPI s/p colon: Details: LAST VISIT RLQ abdominal pain Abdominal bloating Constipation Plan Continue current diet. Low FODMAP diet discussed with patient. List of food recommended as well as list of food to avoid given to patient per her request. Please book patient for colonoscopy. Patient has a history of sleep apnea and is using CPAP every night. Denies any cardiac or respiratory symptoms. No issues with anesthesia in the past. Patient is not on any anticoagulation medication. What to expect before during and after procedure discussed with patient. Stressed the importance of good bowel prep and clear liquid diet day before procedure. I will see patient after the procedure, sooner on as needed basis. Patient is agreeable to this plan and verbalizes understanding of instructions. She was given the opportunity to ask questions and all questions answered. ? Thank you for allowing me to participate in her care Medications New bisacodyl (Dulcolax (bisacodyl)) take 4 tabs at noon the day before your colonoscopy 20 mg (4 x 5 mg) PO ONCE 1 day 4 tabs 0RF Z12.11 polyethylene glycol 3350 (Miralax) As directed by gastroenterology department at [facility] 238 grams PO ONCE 238 grams 0RF Z12.11 COLONOSCOPY Findings: Terminal Ileum-normal Cecum:normal Ascending Colon: normal Transverse Colon -normal Descending Colon: x 2 sessile appearing polyps 6-9 mm removed with cold snare, one was not retrieved Sigmoid Colon: normal Rectum: Retroflexion with small internal hemorrhoids seen, grade I Anorectum - normal Intervention: cold snare Colon preparation: [place] Bowel Preparation Scale Right colon; 3 Transverse colon: 3 Left colon; 3 (0 = Unprepared colon segment with mucosa not seen due to solid stool that cannot be cleared. 1 = Portion of mucosa of the colon segment seen, but other areas of the colon segment not well seen due to staining, residual stool and/or opaque liquid. 2 = Minor amount of residual staining, small fragments of stool and/or opaque liquid, but mucosa of colon segment seen well. 3 = Entire mucosa of colon segment seen well with no residual staining, small fragments of stool or opaque liquid) Impression and Post Procedure Diagnosis: redundant colon- could explain her constipation, she also has small umbilical hernia colon polyps internal hemorrhoids Plan: High fiber diet leaflet Avoid straining at stool, epsom salts and sitz bath, anusol supps or cream Repeat Colonoscopy in 5-6 years or earlier if clinically indicated PATHOLOGY: Diagnosis Colon, descending, polyp: Hyperplastic polyp TODAY'S VISIT Patient is here today for follow-up and to discuss colonoscopy results. Patient denies any ill effects from the prep, anesthesia or procedure itself. Two polyps found 1 not retrieved. Hyperplastic in descending colon. Recommendation was made for patient to return in 5 years for colorectal screening. During procedure Dr. Joseph noticed umbilical hernia. Patient reports that she never noticed or felt that. Patient was sent to general surgeon. Saw Dr. Macias yesterday and no surgical intervention needed at this time. Patient denies any melena, hematochezia. Reports to be feeling well. Denies any abdominal pain or discomfort. Denies any dyspepsia, dysphagia or odynophagia. [facility] Medical History (Reviewed 12/15/24 @ 11:55 by Bharat Nieto [facility]) SVT (supraventricular tachycardia) HTN (hypertension) Osteoporosis JOSE (obstructive sleep apnea) Hypothyroidism (acquired) Hyperlipidemia GERD (gastroesophageal reflux disease) Carotid stenosis Asthma Surgical History History of total hip replacement H/O dilation and curettage Hx of section History of knee replacement Hx of thumb surgery Family History Mother Osteoporosis Father Dementia Parkinson disease Social History Household Members: Family Alcohol intake: never Patient Tobacco Use Status: Never used Tobacco Review of Systems Const Denies weight gain and Denies weight loss ENT Reports no additional complaints, Denies dysphagia and Denies odynophagia Card Reports no additional complaints Resp Reports no additional complaints GI Reports abdominal pain (Occasional RLQ), Denies belching, Denies melena, Denies bloating, Denies change in bowel habits, Denies dysphagia, Denies excessive flatus, Denies dyspepsia, Denies heartburn, Denies diarrhea, Denies loose stools, Denies nausea, Denies odynophagia and Denies vomiting Musc Reports no additional complaints Neuro Reports no additional complaints Psych Reports no additional complaints Endo Reports no additional complaints Physical Exam Const General: healthy appearing and no acute distress Nutritional Appearance: well nourished Orientation/consciousness: patient oriented x3 Resp Effort & Inspection: normal respiratory effort, able to speak in complete sentences, no tracheal deviation and symmetric chest movement Auscultation: clear to auscultation bilaterally Cardio Rate: regular rate GI Inspection: Yes normal to inspection and No distended Palpation (GI): Soft to palpation, not firm, nontender and No hepatosplenomegaly present Auscultation: normal bowel sounds General: Yes no CVA tenderness Back/Spine/Pelvis Back: no CVA tenderness Skin General skin exam: elasticity normal, turgor normal and dry skin Neuro General: patient oriented x3 Psych Appearance: grossly normal Mental Status: mental status grossly normal Assessment & Plan Assessment & Plan (1) Umbilical hernia: Code(s): K42.9 - Umbilical hernia without obstruction or gangrene Category: Medical Qualifiers: Obstruction and gangrene presence: without obstruction or gangrene Qualified Code(s): K42.9 - Umbilical hernia without obstruction or gangrene (2) Status post colonoscopy: Code(s): Z98.890 - Other specified postprocedural states Plan Patient denies any abdominal pain or discomfort. Patient reports to be feeling well. Right lower quadrant pain occasionally most likely related to being constipated. Patient will monitor and if the pain persists patient will call our office. Encouraged her to look at her list of food recommended. Follow low FODMAP diet. Patient will call her surgeon if she noticed that the hernias getting bigger or she will experience periumbilical pain. Patient is agreeable to current plan of care and verbalizes understanding of instructions. She was given the opportunity to ask questions and all questions answered. Thank you for allowing me to participate in her care Coding Level of Care Code Est Pt Level 3 (03555) Diagnoses Umbilical hernia without obstruction and without gangrene K42.9 Obstruction and gangrene presence: without obstruction or gangrene Status post colonoscopy Z98.890 Time Spent (min) 25 Comment 15 minutes spent with patient and additional 10 minutes spent reviewing her records
[2024-12-15 11:56] VITALS: BP 146/76; PULSE 64; O2SAT 100; BMI 25.3
--- OUTSIDE RECORDS SUMMARY | 2024-12-15 12:29 | XMS_ITS ---
Author Organization [facility], [facility] Address [address] [place] [id number] Care Team Providers Care Accounting Representative Name Role Phone LISS STAHL Primary Care Provider [phone] Joycelyn Garrison [phone] ALLERGIES Allergen (clinical drug ingredient) Drug/Non Drug [...] Tobacco use: nonsmoker Section Notes: Lives in [place], [place] with her . Encounters Encounter Location Date Provider Diagnosis [facility], [address] [id number] 02/01/2024 Joycelyn Garrison PLAN OF TREATMENT No Information Progress Notes * ELIZABETH SWARTZB:[birth year] (64 yo F)Acc No.[id number]:02/01/2024 Patient:??SHERIDANLUIS Provider:??Joycelyn Garrison DNP :1960?Age:63 Y?Sex:Fe male Date:02/01/2024 Phone: Address:[address] [place], [place] Pcp:LISS STAHL Subjective: * Chief Complaints: * ?1. F/u n/pt labs. * HPI: ?Patient Care Team:?Pool Servicer:??Dr. Javier, [facility].??Tile Machine Operator:??Anisha Tinajero - [facility].??Pathology Secretary:??Dr. Hart, [place], [place].??Sorter/Assay Tech:??Dr. Vásquez, [facility] Amandeep.? Providers/Specialists: Dr. Jhonny Liz, [place], [place] ?PCP: Dr. Gill, [place], [place] ?Dentist: Dr. Cochran, [place], [place]. * Medical History:??Allergies, Hay Fever, Lactose Intolerant, Arthritis, Asthma, Breast Lumps during nursing, Chicken pox as a child, Fracture - ankle 50 years ago, Migraines, Osteoporosis, Sleep Apnea, Low Thyroid. * Sports Photographer History:??Menstrual hist ory:??Age of Menarche:??12,?Age of Menopause:??53.??Menopause??53.??Last pap smear date??10/2023 - normal per patient.??Last mammogram date??2021 - normal; per patient - scheduled for December 2023.?? * OB History:?? Histo ry:??Total pregnancies:??5,??Full-term pregnancies:??3,??AB Spontaneous:??2,??Total living children:??3.??C section(s)??1 - 1989.?? * Surgical History:??C- Sectio n 1989, D/C miscarriages , [place] Teeth Removal 1979, Colonoscopy (2) - normal [...] Yes, occasionaly. 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 ?Lives in [place], [place] with her . * Allergies:??Red Dye: [...] Notes Category Not es Patient Care Team Pool Servicer: Dr. Javier, [facility] Providers/Specialis ts: Dr. Jhonny Liz, [facility] MARGARET Almaguer [facility] Dentist: Rosina Deutsch [place] Tile Machine Operator: [facility] Pathology Secretary: Pio Diaznasim martinez [place] Sorter/Assay Tech: Dr. Vásquez, [facility]
--- OUTSIDE RECORDS SUMMARY | 2024-12-15 12:29 | XMS_ITS ---
Author Organization [facility], [facility] Address [address], [place] [id number] Care Team Providers Care Historic Sites Registrar Name Role Phone LISS STAHL Primary Care Provider [phone] Delroy Joycelyn Garrison Unavailable [phone] REASON FOR VISIT Lab- [facility] Encounters Encounter Location Date Provider Diagnosis [facility], [address] [id number] 12/29/2023 Joycelyn Garrison Hypothyroidism, unspecified type E03.9 [...] TSH (7444) 12/29/2023 CARDIO IQ(R) LIPID PANEL (57107) 024 ALBUMIN, RANDOM URINE W/CREATININE (6517 ) 12/29/2023 COMPREHENSIVE METABOLIC PANEL (54346) CARDIO IQ(R) LIPOPROTEIN (a) (21316) CBC (INCLUDES DIFF/PLT) (6399) URINALYSIS, COMPLETE W/REFLEX TO CULTURE (3020) 12/29/2023 CARDIO IQ(R) HS CRP (19495) 12/29/2023 CARDIO IQ(R) HEMOGLOBIN A1c (66726) 12/03 CARDIO IQ(R) APOLIPOPROTEIN A1 (05919) 0 12/29/2023 CARDIO IQ(R) APOLIPOPROTEIN B (59743) CARDIO IQ(R) HOMOCYSTEINE (56169) 2023 CARDIO IQ(R) INSULIN (22052) 12/29/2023 T3 UPTAKE (861) 12/29/2023 T3, TOTAL (859) 12/29/2023 T3, FREE (48418) 12/29/2023 CARDIO IQ(R) VITAMIN D, 25 HYDROXY (9173 5) 12/29/2023 Progress Notes * EKATERINA SWARTZMERON:[birth year] (63 yo F)Acc No.[id number]:12/29/2023 Patient:??LUIS SWARTZ :1960?Age:63 Y?Sex:Fe male Phone: Address:[address] [place] [address], [place] [address] Subjective: * Chief Complaints: * ?Lab- [facility] * Medical History:?? * Surgical History:?? * Hospitalization/Major Diagno stic Procedure:?? * Medications:?? Objective: Assessment: * Assessment: 1.??Hypothyroidism, unspecif ied type - E03.9 (Primary)??2.??Mixed hyperlipidemia - E78.2??3.??Essential (primary) hypertension - I10??4.??Other fatigue - R53.83?? Plan: * Treatment: 2.??Mixed hyperlipidemia?LAB: CARDIO IQ(R) APOLIPOPROTEIN B (33869) (Ordered for 12/29/2023) ?LAB: CARDIO IQ(R) APOLIPOPROTEIN A1 (51268) (Ordered for 12/29/2023) ?LAB: CARDIO IQ(R) HEMOGLOBIN A1c (89592) (Ordered for 12/29/2023) ?LAB: CARDIO IQ(R) HOMOCYSTEINE (58512) (Ordered for 12/29/2023) ?LAB: CARDIO IQ(R) HS CRP (48382) (Ordered for 12/29/2023) ?LAB: CARDIO IQ(R) INSULIN (77086) (Ordered for 12/29/2023) ?LAB: CARDIO IQ(R) LIPID PANEL (09643) (Ordered for 12/29/2023) ?LAB: CARDIO IQ(R) LIPOPROTEIN (a) (38796) (Ordered for 12/29/2023) ?LAB: CARDIO IQ(R) VITAMIN D, 25 HYDROXY (83942) (Ordered for 12/29/2023) ?LAB: CBC (INCLUDES DIFF/PLT) (2780) (Ordered for 12/29/2023) ?LAB: COMPREHENSIVE METABOLIC PANEL (33589) (Ordered for 12/29/2023) ?LAB: ALBUMIN, RANDOM URINE W/CREATININE (1163) (Ordered for 12/29/2023) ?LAB: THYROID PANEL WITH TSH (8659) (Ordered for 12/29/2023) ?LAB: THYROID PEROXIDASE AND THYROGLOBULIN ANTIBODIES (5892) (Ordered for 12/29/2023) ?LAB: URINALYSIS, COMPLETE W/REFLEX TO CULTURE (8048) (Ordered for 12/29/2023) 3.??Essential (primary) hype rtension?LAB: CARDIO IQ(R) APOLIPOPROTEIN B (41343) (Ordered for 12/29/2023) ?LAB: CARDIO IQ(R) APOLIPOPROTEIN A1 (31392) (Ordered for 12/29/2023) ?LAB: CARDIO IQ(R) HEMOGLOBIN A1c (92684) (Ordered for 12/29/2023) ?LAB: CARDIO IQ(R) HOMOCYSTEINE (07246) (Ordered for 12/29/2023) ?LAB: CARDIO IQ(R) HS CRP (77323) (Ordered for 12/29/2023) ?LAB: CARDIO IQ(R) INSULIN (07035) (Ordered for 12/29/2023) ?LAB: CARDIO IQ(R) LIPID PANEL (49649) (Ordered for 12/29/2023) ?LAB: CARDIO IQ(R) LIPOPROTEIN (a) (53687) (Ordered for 12/29/2023) ?LAB: CARDIO IQ(R) VITAMIN D, 25 HYDROXY (82835) (Ordered for 12/29/2023) ?LAB: CBC (INCLUDES DIFF/PLT) (9999) (Ordered for 12/29/2023) ?LAB: COMPREHENSIVE METABOLIC PANEL (05144) (Ordered for 12/29/2023) ?LAB: ALBUMIN, RANDOM URINE W/CREATININE (6358) (Ordered for 12/29/2023) ?LAB: THYROID PANEL WITH TSH (9844) (Ordered for 12/29/2023) ?LAB: THYROID PEROXIDASE AND THYROGLOBULIN ANTIBODIES (4414) (Ordered for 12/29/2023) ?LAB: URINALYSIS, COMPLETE W/REFLEX TO CULTURE (1138) (Ordered for 12/29/2023) 4.??Other fatigue?LAB: CARDIO IQ(R) APOLIPOPROTEIN B (13771) (Ordered for 12/29/2023) ?LAB: CARDIO IQ(R) APOLIPOPROTEIN A1 (47756) (Ordered for 12/29/2023) ?LAB: CARDIO IQ(R) HEMOGLOBIN A1c (09759) (Ordered for 12/29/2023) ?LAB: CARDIO IQ(R) HOMOCYSTEINE (69967) (Ordered for 12/29/2023) ?LAB: CARDIO IQ(R) HS CRP (72674) (Ordered for 12/29/2023) ?LAB: CARDIO IQ(R) INSULIN (22099) (Ordered for 12/29/2023) ?LAB: CARDIO IQ(R) LIPID PANEL (81655) (Ordered for 12/29/2023) ?LAB: CARDIO IQ(R) LIPOPROTEIN (a) (24009) (Ordered for 12/29/2023) ?LAB: CARDIO IQ(R) VITAMIN D, 25 HYDROXY (70515) (Ordered for 12/29/2023) ?LAB: CBC (INCLUDES DIFF/PLT) (4299) (Ordered for 12/29/2023) ?LAB: COMPREHENSIVE METABOLIC PANEL (57095) (Ordered for 12/29/2023) ?LAB: ALBUMIN, RANDOM URINE W/CREATININE (3995) (Ordered for 12/29/2023) ?LAB: THYROID PANEL WITH TSH (5087) (Ordered for 12/29/2023) ?LAB: THYROID PEROXIDASE AND THYROGLOBULIN ANTIBODIES (7790) (Ordered for 12/29/2023) ?LAB: URINALYSIS, COMPLETE W/REFLEX TO CULTURE (2180) (Ordered for 12/29/2023) * Procedure Codes:?? * true * Date:??
--- OUTSIDE RECORDS SUMMARY | 2024-12-15 12:29 | XMS_ITS | Patient Health Record ---
Author Organization [facility] Address [address] [place] [id number] Care Team Providers Care Flexographic Printing Press Operator Name Role Phone LISS STAHL Primary Care Provider Joycelyn Garrison Unavailable [phone] ALLERGIES Allergen (clinical drug ingredient) Drug/Non Drug [...] Tobacco use: nonsmoker Section Notes: Lives in [place], [place] with her . Lives in [place], [place] with her . Lives in [place], [place] with her . PROBLEMS Problem Type ICD Code Onset Dates Problem Status W/U Status Risk SNOMED Code Notes Problem Age-related osteoporosis without current pathological fracture (M81.0) Active confirmed 31250466 Problem Seasonal allergies (J30.2) Active confirmed 040415165 Problem Mild intermittent asthma without complication (J45.20) Active confirmed 020816711 Problem Hypothyroidism, unspecified type (E03.9) Active confirmed 70937409 Problem Arthritis (M19.90) Active confirmed 4558971 Problem Intractable migraine with aura without status migrainosus (G43.119) Active confirmed 926714288 Problem Sleep apnea, unspecified type (G47.30) Active confirmed 20059565 Encounters Encounter Location Date Provider Diagnosis [address] [id number] 12/29/2023 [address]celyn Garrison [address] [place] [phone] 02/01/2024 Joycelyn Garrison [address] [place] [phone] 04/19/2024 Joycelyn Garrison [address] [place] [id number] 12/29/2023 Joycelyn aGrrison Hypothyroidism, unspecified type E03.9 ; Mixed hyperlipidemia [...] TSH (7444) 12/29/2023 CARDIO IQ(R) LIPID PANEL (62321) 024 ALBUMIN, RANDOM URINE W/CREATININE (6517 ) 12/29/2023 COMPREHENSIVE METABOLIC PANEL (93840) CARDIO IQ(R) LIPOPROTEIN (a) (96880) CBC (INCLUDES DIFF/PLT) (6399) URINALYSIS, COMPLETE W/REFLEX TO CULTURE (3020) 12/29/2023 CARDIO IQ(R) HS CRP (33011) 12/29/2023 CARDIO IQ(R) HEMOGLOBIN A1c (73432) 12/03 CARDIO IQ(R) APOLIPOPROTEIN A1 (10561) 0 12/29/2023 CARDIO IQ(R) APOLIPOPROTEIN B (24817) CARDIO IQ(R) HOMOCYSTEINE (73753) 2023 CARDIO IQ(R) INSULIN (90951) 12/29/2023 T3 UPTAKE (861) 12/29/2023 T3, TOTAL (859) 12/29/2023 T3, FREE (71115) 12/29/2023 CARDIO IQ(R) VITAMIN D, 25 HYDROXY (9173 5) 12/29/2023 Insurance Providers Payer Name Payer Address Payer Phone Subscriber Number Group Number Insured Name Patient Relationship to Insured Coverage Start Date Coverage End Date Medicare [address] [place] [id number] [phone] [id number] LUIS SWARTZ Self - patient is the insured [facility] [address] [place], [place] [id number] LUIS SWARTZ Self - patient is the insured MEDICAL (GENERAL) HISTORY Medical History History ICD Code Allergies, Hay Fever Lactose Intolerant Arthritis Asthma Breast Lumps during nursing Chicken pox as a child Fracture - ankle 50 years ago Migraines Osteoporosis Sleep Apnea Low Thyroid Surgical History Surgery Date(Month/Year) C- Section 1989 D/C miscarriages [place] Teeth Removal 1979 Colonoscopy (2) - normal [...]
--- OUTSIDE RECORDS SUMMARY | 2024-12-15 12:30 | XMS_ITS ---
Author Organization [facility], [facility] Address [address], [place] [phone] Care Team Providers Care Special Skills Officer Name Role Phone LISS STAHL Primary Care Provider [phone] Joycelyn Garrison [phone] REASON FOR VISIT cpe Encounters Encounter Location Date Provider Diagnosis [facility], [facility] [address], [place] [phone] 04/19/2024 Joycelyn Garrison PLAN OF TREATMENT No Information Progress Notes * EKATERINA SWARTZADOB:[birth year] (64 yo F)Acc No.[id number]:04/19/2024 Progress Note Patient:??LUIS SWARTZ Provider:??Joycelyn Garrison DNP :1960?Age:63 Y?Sex:Fe male Date:04/19/2024 Phone: Address:[address] [place], [place] Pcp:LISS STAHL Subjective: * Chief Complaints: * ?1. Cpe. * Medical History:?? Objective: Assessment: Plan: * Treatment: Care Plan: * Problems:?? * Billing Information: * Visit Code:?? * Procedure Codes:?? * Sign off status: Pending * Provider:??Joycelyn Garrison DNP Date:??
== END 2024-12-15 12:20 | disposition home or self-care (01) ==
PROVIDERS: PCP Internal Medicine; Visit Provider Nurse Practitioner Family
DX: K42.9 Umbilical hernia without obstruction or gangrene (principal); Z98.890 Other specified postprocedural states
CPT/HCPCS: 99213

== ENCOUNTER → 2024-12-15 11:49 | Outpatient (BNVA) | payer MEDICARE, OTHER, SELFPAY | PROVIDERS: PCP Internal Medicine; Visit Provider Nurse Practitioner Family | DX: K59.09 Other constipation (principal); K42.9 Umbilical hernia without obstruction or gangrene; Z98.890 Other specified postprocedural states | CPT/HCPCS: 99212 ==